=== PATIENT | male | born 2000 | race Caucasian/White ===

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

== ENCOUNTER 2019-01-11 17:30 | Emergency (ER) | payer OTHER ==
[2019-01-11 17:59] VITALS: PULSE 78; RESP 16; TEMP 98.2
--- NOTE | 2019-01-11 19:18 | ED ---
General Adult HPI - General Chief complaint: Headache Stated complaint: vibrations in head Time Seen by Provider: 01/11/19 18:35 Source: patient Mode of arrival: ambulatory Limitations: no limitations - History of Present Illness Initial comments: Patient is a 18-year-old male presenting to the emergency Department with complaints of feeling "vibrations" in the back of his head for the last 2 hours. Patient states he was riding in the back of the car when this feeling started. Patient denies headache, fever, chills, nausea, vomiting, chest pain, shortness of breath, trauma to his head. Patient denies blurry vision, changes in medication. Patient states his head does not hurt to the touch. Patient is denying neck pain. Patient was seen in the ER this month for dizziness and had a head CT that was normal. Patient has no other complaints at this time. Upon arrival to ER, vital signs are stable. - Related Data Home Medications Medication Instructions Recorded Confirmed cloNIDine HCL [Catapres] 0.1 mg PO HS 04/18/18 12/18/18 Allergies Allergy/AdvReac Type Severity Reaction Status Date / Time cat dander Allergy Unknown Verified 01/11/19 17:59 Review of Systems ROS Statement: Those systems with pertinent positive or pertinent negative responses have been documented in the HPI. ROS Other: All systems not noted in ROS Statement are negative. Past Medical History Past Medical History: No Reported History History of Any Multi-Drug Resistant Organisms: None Reported Past Surgical History: No Surgical Hx Reported Additional Past Surgical History / Comment(s): pyloric stenosis Past Psychological History: No Psychological Hx Reported Smoking Status: Former smoker Past Alcohol Use History: None Reported Past Drug Use History: Marijuana General Exam - General Exam Comments Initial Comments: GENERAL: Well-appearing, well-nourished and in no acute distress. HEAD: Atraumatic, normocephalic. No pain to palpation. EYES: Pupils equal round and reactive to light, extraocular movements intact, sclera anicteric, conjunctiva are normal. ENT: TMs normal, nares patent, oropharynx clear without exudates. Moist mucous membranes. NECK: Normal range of motion, supple without lymphadenopathy or JVD. No neck pain. LUNGS: Breath sounds clear to auscultation bilaterally and equal. No wheezes rales or rhonchi. HEART: Regular rate and rhythm without murmurs, rubs or gallops. ABDOMEN: Soft, nontender, normoactive bowel sounds. No guarding, no rebound. No masses appreciated. : Deferred EXTREMITIES: Normal range of motion, no pitting or edema. No clubbing or cyanosis. NEUROLOGICAL: Cranial nerves II through XII grossly intact. Normal speech, normal gait. PSYCH: Normal mood, normal affect. SKIN: Warm, Dry, normal turgor, no rashes or lesions noted. Limitations: no limitations Course Vital Signs 01/11/19 17:54 Temperature 98.2 F Pulse Rate 78 Respiratory 16 Rate Blood Pressure 123/71 O2 Sat by Pulse 98 Oximetry Medical Decision Making - Medical Decision Making Patient is a 18-year-old male presenting with "vibrations" in the back of his head x 2 hours. Patient denies fever, chills, neck pain, headache, dizziness, chest pain, abdominal pain, nausea, vomiting. Patient has no other complaints at this time. There is no trauma to the head. Patient has recently had a CT of the brain which was normal. Patient's vital signs are still stable. Patient's exam is unremarkable today. Discussed with patient is simply could be just a sensation he is feeling of time. Patient is stable for discharge at this time. Patient will follow up with PCP as needed. Patient is agreement with this plan of care. Return parameters were discussed with the patient he verbalizes understanding. Case discussed Dr. Martin. Disposition Clinical Impression: Pulsating sensation in head Disposition: HOME SELF-CARE Condition: Stable Instructions (If sedation given, give patient instructions): Normal Exam (ED) Additional Instructions: Please return to the Emergency Department if symptoms worsen or any other concerns. Follow-up with PCP as discussed. Is patient prescribed a controlled substance at d/c from ED?: No Referrals: Mandeep Chaves MD [Primary Care Provider] - 1-2 days
[2019-01-11 19:49] VITALS: BP 127/67
== END 2019-01-11 19:48 | disposition home or self-care (01) ==
LOC: EC 17:30
DX: R29.818 Other symptoms and signs involving the nervous system (principal); Z79.899 Other long term (current) drug therapy; Z91.048 Other nonmedicinal substance allergy status; Z87.891 Personal history of nicotine dependence
CPT/HCPCS: 99284

== ENCOUNTER → 2019-02-23 | Outpatient (CLI) | payer OTHER ==
[2019-02-23 13:29] LABS: HCT 43.6 % (39.0-53.0); HGB 14.6 gm/dL (13.0-17.5); MCH 29.4 pg (25.0-35.0); MCHC 33.6 g/dL (31.0-37.0); MCV 87.6 fL (80.0-100.0); Mean Platelet Volume 6.3; Platelet Count 278 k/uL (150-450); RBC 4.97 m/uL (4.30-5.90); WBC 6.2 k/uL (4.0-11.0)
[2019-02-23 14:31] LABS: Erythrocyte Sedimentation Rate 2 mm/hr (0-15)
[2019-02-23 19:56] LABS: ALT 13 U/L (10-49); AST 16 U/L (14-35); African American GFR (CKD) 125.9 (60.0-200.0); Albumin/Globulin Ratio 2.45 (1.60-3.17); Alkaline Phosphatase 75 U/L (41-126); C Reactive Protein <0.4 mg/dL (0.0-0.8); Calcium 9.8 mg/dL (8.7-10.3); Carbon Dioxide 28.5 mmol/L (21.6-31.8); Chloride 105 mmol/L (96-109); Glucose 88 mg/dL (70-110); Potassium 4.5 mmol/L (3.5-5.5); Sodium 139 mmol/L (135-145); Total Bilirubin 2.2 mg/dL (0.3-1.2); Total Protein 6.9 g/dL (6.2-8.2)
== END | disposition home or self-care (01) ==
LOC: LABWHC1 11:58
PROVIDERS: ATTEND Physician Assistant
DX: R53.83 Other fatigue (principal)
CPT/HCPCS: 36415; 80053; 84443; 85027; 85652; 86140

== ENCOUNTER → 2019-06-05 | Outpatient (CLI) | payer OTHER ==
--- NOTE | 2019-06-05 07:46 | US ---
EXAMINATION TYPE: US abdomen complete DATE OF EXAM: 06/05/2019 COMPARISON: None CLINICAL HISTORY: 18-year-old male R10.9 Abdominal pain. Hx pyloric stenosis as a child. Patient sta liliana his incision is giving him discomfort. NPO. TECHNIQUE: Multiple sonographic images of the abdomen are obtained. FINDINGS: EXAM MEASUREMENTS: Liver Length: 14.5 cm Gallbladder Wall: 0.2 cm CBD: 0.3 cm Spleen: 10.9 cm Right Kidney: 9.9 x 4.8 x 3.7 cm Left Kidney: 9.4 x 4.4 x 4.2 cm Pancreas: Obscured by bowel gas Liver: wnl Gallbladder: wnl Evidence for sonographic Rojas's sign: neg CBD: wnl Spleen: wnl Kidneys: No hydronephrosis on either side. Upper IVC: wnl Abd Aorta: Aorta normal caliber. IMPRESSION: Suboptimal visualization of the pancreas. Otherwise, unremarkable sonographic examination of the abdo men.
== END | disposition home or self-care (01) ==
LOC: RADUSWWP 07:00
PROVIDERS: ATTEND Family Medicine
DX: R10.9 Unspecified abdominal pain (principal)
CPT/HCPCS: 76700

== ENCOUNTER → 2019-10-17 | Outpatient (CLI) | payer OTHER ==
[2019-10-17 14:13] LABS: Basophils # (A) 0.1 k/uL (0-0.2); Basophils % (A) 1 %; Eosinophils # (A) 0.3 k/uL (0-0.7); Eosinophils % (A) 4 %; HCT 46.9 % (39.0-53.0); HGB 15.3 gm/dL (13.0-17.5); Lymphocytes # (A) 2.6 k/uL (1.0-4.8); Lymphocytes % (A) 34 %; MCH 29.3 pg (25.0-35.0); MCHC 32.6 g/dL (31.0-37.0); MCV 90.1 fL (80.0-100.0); Mean Platelet Volume 6.8; Monocytes # (A) 0.4 k/uL (0-1.0); Monocytes % (A) 6 %; Neutrophils # (A) 4.1 k/uL (1.3-7.7); Neutrophils % (A) 53 %; Platelet Count 281 k/uL (150-450); RBC 5.21 m/uL (4.30-5.90); RDW 12.5 % (11.5-15.5); WBC 7.8 k/uL (4.0-11.0)
[2019-10-17 14:44] LABS: Appearance,Urine Clear (Clear); Bilirubin,Urine Negative (Negative); Blood,Urine Negative (Negative); Color,Urine Colorless; Glucose,Urine (UA) Negative (Negative); Ketones,Urine Negative (Negative); Leukocyte Esterase,Urine Negative (Negative); Nitrite,Urine Negative (Negative); Protein,Urine Negative (Negative); Specific Gravity,Urine 1.003 (1.001-1.035); Urobilinogen,Urine <2.0 mg/dL (<2.0)
[2019-10-17 18:49] LABS: African American GFR (CKD) 112.2 (60.0-200.0); Albumin 4.9 g/dL (3.80-4.90); Albumin/Globulin Ratio 2.13 (1.60-3.17); Anion Gap 2.5 mmol/L (4.00-12.00); BUN/Creat Ratio 10.91 Ratio (12.00-20.00); Calcium 10.1 mg/dL (8.7-10.3); Carbon Dioxide 28.5 mmol/L (21.6-31.8); Globulin 2.3 g/dL (1.6-3.3); Non-African American GFR(CKD) 96.8 (60.0-200.0); Potassium 4.4 mmol/L (3.5-5.5); Total Bilirubin 1.1 mg/dL (0.2-1.2); Total Protein 7.2 g/dL (6.2-8.2)
== END | disposition home or self-care (01) ==
LOC: LABWHC1 12:50
PROVIDERS: ATTEND Nurse Practitioner Family
DX: L30.9 Dermatitis, unspecified (principal)
CPT/HCPCS: 36415; 80053; 81003; 85025

== ENCOUNTER 2020-01-03 20:37 | Emergency (ER) | payer OTHER ==
[2020-01-03] MEDS ORDERED: guaiFENesin-DM 600/30MG 1 EACH TAB.ER.12H PO STA (21:08)
[2020-01-03] MEDS ORDERED: ACETAMINOPHEN TAB 325 MG TAB PO STA (21:08)
[2020-01-03] MEDS ORDERED: IBUPROFEN 600 MG TAB PO STA (21:08)
--- NOTE | 2020-01-03 21:11 | ED ---
URI HPI - General Chief Complaint: Upper Respiratory Infection Stated Complaint: Wants COVID test Time Seen by Provider: 01/03/20 20:53 Source: patient Mode of arrival: ambulatory Limitations: no limitations - History of Present Illness Initial Comments: 19-year-old male patient presents to the emergency department today for evaluation of nasal congestion, sore throat, fever. Patient states symptoms started last evening. States his temperature has been around 100F. He denies any cough, chest congestion, shortness of breath. He denies taking any medication for his symptoms. Denies any sick contacts or recent travel. Patient is concerned due to the current coronavirus pandemic. Patient states he is otherwise healthy. He does take a daily Zyrtec and clonidine for sleeping. Denies history of smoking. Denies drug use. Patient denies any recent rash, chest pain, abdominal pain, nausea, vomiting, diarrhea, constipation, back pain, numbness, tingling, dizziness, weakness, hematuria, dysuria, urinary urgency, urinary frequency, headache, visual changes, or any other complaints. - Related Data Home Medications Medication Instructions Recorded Confirmed cloNIDine HCL [Catapres] 0.1 mg PO HS 04/18/18 12/18/18 Previous Rx's Medication Instructions Recorded guaiFENesin-DM 600/30MG [Mucinex 1 each PO Q12HR #10 tab.er.12h 01/03/20 Dm] Allergies Allergy/AdvReac Type Severity Reaction Status Date / Time cat dander Allergy Unknown Verified 01/03/20 20:41 Review of Systems ROS Statement: Those systems with pertinent positive or pertinent negative responses have been documented in the HPI. ROS Other: All systems not noted in ROS Statement are negative. Past Medical History Past Medical History: No Reported History History of Any Multi-Drug Resistant Organisms: None Reported Past Surgical History: No Surgical Hx Reported Additional Past Surgical History / Comment(s): pyloric stenosis Past Psychological History: No Psychological Hx Reported Smoking Status: Never smoker Past Alcohol Use History: None Reported Past Drug Use History: Marijuana General Exam Limitations: no limitations General appearance: alert, in no apparent distress, other (This is a well- developed, well-nourished adult male patient in no acute distress. Vital signs upon presentation are temperature 99.8F, pulse 123, respirations 20, blood pressure 144/88, pulse ox 98% on room air.) Eye exam: Present: normal appearance, PERRL, EOMI. Absent: scleral icterus, conjunctival injection, periorbital swelling ENT exam: Present: mucous membranes moist, TM's normal bilaterally (Pearly with no effusion). Absent: normal oropharynx (Pharyngeal erythema, no tonsillar hypertrophy, no exudate. Uvula is midline, tonsils are symmetric.) Neck exam: Present: normal inspection. Absent: tenderness, meningismus, lymphadenopathy Respiratory exam: Present: normal lung sounds bilaterally. Absent: respiratory distress, wheezes, rales, rhonchi, stridor Cardiovascular Exam: Present: regular rate, normal rhythm, normal heart sounds. Absent: systolic murmur, diastolic murmur, rubs, gallop, clicks GI/Abdominal exam: Present: soft, normal bowel sounds. Absent: distended, tenderness, guarding, rebound, rigid Neurological exam: Present: alert, oriented X3, CN II-XII intact Psychiatric exam: Present: normal affect, normal mood Skin exam: Present: warm, dry, intact, normal color. Absent: rash Course Vital Signs 01/03/20 01/03/20 01/03/20 20:38 22:00 22:02 Temperature 99.8 F H 99.5 F Pulse Rate 123 H 118 H Respiratory 20 19 Rate Blood Pressure 144/88 129/81 O2 Sat by Pulse 98 98 Oximetry Medical Decision Making - Medical Decision Making 19-year-old male patient presented to the emergency department today for evaluation of sore throat, nasal congestion, and elevated temperature. Patient's temperature is 99.9F in the department. Throat did reveal some pharyngeal erythema with no exudate, no swelling, tonsils are symmetric and uvula was midline. Lungs are clear to auscultation. He is not coughing. Influenza testing was negative. We also did send a COVID-19 swab. We did discuss her results of influenza testing. He is diagnosed with a viral upper respiratory infection. We did discuss increasing fluids, pain management with [id number] medication and prescription Mucinex DM. Be discharged to follow-up with his primary care physician for recheck in 1-2 days. He is instructed to quarantine until he received results of his COVID-19 testing. Return parameters were discussed in detail. He verbalizes understanding and agrees with this plan. - Lab Data Lab Results 01/03/20 Range/Units 21:31 Influenza Type A RNA Not Detected (Not Detectd) Influenza Type B (PCR) Not Detected (Not Detectd) Disposition Clinical Impression: Viral upper respiratory infection Disposition: HOME SELF-CARE Condition: Good Instructions (If sedation given, give patient instructions): Upper Respiratory Infection (ED) Additional Instructions: Take medications as directed. Take Tylenol and Motrin for fever control. Await your COVID-19 results. Follow-up through primary care physician for recheck in 1-2 days. Return to the emergency department immediately for any new, worsening, or concerning symptoms. Prescriptions: guaiFENesin-DM 600/30MG [Mucinex Dm] 1 each PO Q12HR #10 tab.er.12h Is patient prescribed a controlled substance at d/c from ED?: No Referrals: Mandeep Chaves MD [Primary Care Provider] - 1-2 days Time of Disposition: 22:57
[2020-01-03 22:02] VITALS: BP 129/81; PULSE 118; RESP 19
[2020-01-03 22:03] VITALS: TEMP 99.5
== END 2020-01-03 23:07 | disposition home or self-care (01) ==
LOC: EC 20:37
DX: J02.9 Acute pharyngitis, unspecified (principal); Z20.828 Contact with and (suspected) exposure to other viral communicable diseases; Z91.048 Other nonmedicinal substance allergy status
CPT/HCPCS: 87502; 99283; U0003

== ENCOUNTER → 2020-02-14 | Outpatient (CLI) | payer OTHER ==
[2020-02-14 12:49] LABS: Basophils # (A) 0.1 k/uL (0-0.2); Basophils % (A) 1 %; Eosinophils # (A) 0.3 k/uL (0-0.7); Eosinophils % (A) 4 %; HCT 46.1 % (39.0-53.0); HGB 14.9 gm/dL (13.0-17.5); Lymphocytes # (A) 2.7 k/uL (1.0-4.8); Lymphocytes % (A) 36 %; MCH 29.1 pg (25.0-35.0); MCHC 32.3 g/dL (31.0-37.0); Mean Platelet Volume 6.9; Monocytes # (A) 0.5 k/uL (0-1.0); Monocytes % (A) 7 %; Neutrophils # (A) 3.6 k/uL (1.3-7.7); Neutrophils % (A) 48 %; Platelet Count 276 k/uL (150-450); RBC 5.12 m/uL (4.30-5.90); RDW 13.1 % (11.5-15.5); WBC 7.5 k/uL (4.0-11.0)
[2020-02-14 20:29] LABS: African American GFR (CKD) 111.4 (60.0-200.0); Albumin 4.6 g/dL (3.80-4.90); Albumin/Globulin Ratio 1.84 (1.60-3.17); Anion Gap 9.1 mmol/L (4.00-12.00); BUN/Creat Ratio 12.73 Ratio (12.00-20.00); Calcium 9.8 mg/dL (8.7-10.3); Carbon Dioxide 24.9 mmol/L (21.6-31.8); Chol/HDL Ratio 3.51; Globulin 2.5 g/dL (1.6-3.3); LDL Cholesterol,Calculated 78.8 mg/dL (0.0-131.0); Non-African American GFR(CKD) 96.1 (60.0-200.0); Potassium 4.4 mmol/L (3.5-5.5); Total Bilirubin 1.3 mg/dL (0.2-1.2); Total Protein 7.1 g/dL (6.2-8.2); VLDL Calculation 14.2 mg/dL (5.00-40.00)
[2020-02-14 20:38] LABS: T4, Free (Free Thyroxine) 1.1 ng/dL (0.83-1.43)
== END | disposition home or self-care (01) ==
LOC: LABWHC1 02-13 14:12
PROVIDERS: ATTEND Nurse Practitioner Family
DX: Z00.00 Encounter for general adult medical examination without abnormal findings (principal); L08.9 Local infection of the skin and subcutaneous tissue, unspecified
CPT/HCPCS: 36415; 80053; 80061; 84439; 84443; 85025; 86060

== ENCOUNTER 2020-05-24 22:57 | Emergency (ER) | payer OTHER ==
[2020-05-24] MEDS ORDERED: METOCLOPRAMIDE 5 MG/ML 2 ML VIAL IVP STA (23:44)
[2020-05-24] MEDS ORDERED: SODIUM CHLORIDE 0.9% 500 ML 500 ML IV ONE (23:44)
[2020-05-24] MEDS ORDERED: diphenhydrAMINE 50 MG/ML 1 ML VIAL IVP STA (23:44)
[2020-05-24] MEDS ORDERED: KETOROLAC 15 MG/ML 1 ML VIAL IVP STA (23:44)
--- NOTE | 2020-05-25 00:08 | ED ---
Headache HPI - General Chief Complaint: Headache Stated Complaint: Headache Time Seen by Provider: 05/24/20 23:16 Mode of arrival: ambulatory Limitations: no limitations - History of Present Illness Initial Comments: 19 year-old male patient presents to the emergency department for evaluation of headache. States that he has had similar headaches for the last year and a half. He was hoping to get a neurology referral. Patient reports a throbbing/pressure sensation to the frontal region. States that he has dizziness and nausea with this. States the headaches generally occur twice weekly. He denies any blurred or double vision. Denies any fever or chills. Denies congestion, cough, or sore throat. Denies any recent head injury. Denies numbness, tingling, or weakness to his extremities. Patient denies any recent rash, cough, shortness of breath, chest pain, abdominal pain, diarrhea, constipation, back pain, hematuria, dysuria, urinary urgency, urinary frequency, or any other complaints. - Related Data Home Medications Medication Instructions Recorded Confirmed cloNIDine HCL [Catapres] 0.1 mg PO HS 04/18/18 12/18/18 Previous Rx's Medication Instructions Recorded guaiFENesin-DM 600/30MG [Mucinex 1 each PO Q12HR #10 tab.er.12h 01/03/20 Dm] Allergies Allergy/AdvReac Type Severity Reaction Status Date / Time cat dander Allergy Unknown Verified 05/24/20 23:07 Review of Systems ROS Statement: Those systems with pertinent positive or pertinent negative responses have been documented in the HPI. ROS Other: All systems not noted in ROS Statement are negative. Past Medical History Past Medical History: No Reported History History of Any Multi-Drug Resistant Organisms: None Reported Past Surgical History: No Surgical Hx Reported Additional Past Surgical History / Comment(s): pyloric stenosis Past Psychological History: No Psychological Hx Reported Smoking Status: Never smoker Past Alcohol Use History: None Reported Past Drug Use History: Marijuana General Exam Limitations: no limitations General appearance: alert, in no apparent distress, other (This is a well- developed, well-nourished adult male patient in no acute distress.) Eye exam: Present: normal appearance, PERRL, EOMI. Absent: scleral icterus, conjunctival injection, periorbital swelling ENT exam: Present: normal exam, normal oropharynx, mucous membranes moist Respiratory exam: Present: normal lung sounds bilaterally. Absent: respiratory distress, wheezes, rales, rhonchi, stridor Cardiovascular Exam: Present: regular rate, normal rhythm, normal heart sounds. Absent: systolic murmur, diastolic murmur, rubs, gallop, clicks GI/Abdominal exam: Present: soft, normal bowel sounds. Absent: distended, tenderness, guarding, rebound, rigid Neurological exam: Present: alert, oriented X3, CN II-XII intact Expanded Speech: Present: fluid speech Cranial nerves: EOM's Intact: Normal Cerebellar function: Finger to Nose: Normal Motor strength exam: RUE: 5, LUE: 5, RLE: 5, LLE: 5 Eye Response: (4) open spontaneously Motor Response: (6) obeys commands Verbal Response: (5) oriented Igor Total: 15 Psychiatric exam: Present: normal affect, normal mood Skin exam: Present: warm, dry, intact, normal color. Absent: rash Course Vital Signs 05/24/20 05/25/20 23:04 01:18 Temperature 98.4 F 98.1 F Pulse Rate 88 71 Respiratory 18 16 Rate Blood Pressure 131/74 121/67 O2 Sat by Pulse 98 97 Oximetry Medical Decision Making - Medical Decision Making 19-year-old male patient presents to the emergency department today for evaluation of headache. Reports a frontal throbbing and pressure. States having headaches 2 times per week for the last year and a half. Physical examination is unremarkable. He is neurologically intact with no focal deficits. He is given Toradol, Reglan, Benadryl. Upon reevaluation states his symptoms are completely resolved. To be discharged to follow-up with his primary care physician for recheck in 1-2 days. He requests urology referral, he is given phone numbers. Return parameters discussed in detail. He verbalizes understanding and agrees with this plan. My attending is Dr. Welch. Disposition Clinical Impression: Headache Disposition: HOME SELF-CARE Condition: Good Instructions (If sedation given, give patient instructions): Acute Headache (ED) Additional Instructions: Follow-up with the neurologist soon as possible. Optic primary care physician for recheck in 1-2 days. Return to the emergency department for any new, worsening, or concerning symptoms. Is patient prescribed a controlled substance at d/c from ED?: No Referrals: Mandeep Chaves MD [Primary Care Provider] - 1-2 days Abram Brown MD [Medical Doctor] - 1-2 days Kvng Adams MD [REFERRING] - 1-2 days Mica Adams MD [REFERRING] - 1-2 days Misbah Angel MD [STAFF PHYSICIAN] - 1-2 days Time of Disposition: 01:07
[2020-05-25 01:26] VITALS: BP 121/67; PULSE 71; RESP 16; TEMP 98.1
== END 2020-05-25 01:18 | disposition home or self-care (01) ==
LOC: EC 22:57
DX: R51.9 Headache, unspecified (principal); Z79.899 Other long term (current) drug therapy; Z91.048 Other nonmedicinal substance allergy status
CPT/HCPCS: 99283; 96374; 96375 ×2; J1200; J2765; J1885

== ENCOUNTER → 2020-07-29 | Outpatient (CLI) | payer OTHER ==
--- NOTE | 2020-07-29 14:13 | XR ---
EXAMINATION TYPE: XR chest 2V DATE OF EXAM: 07/29/2020 COMPARISON: NONE TECHNIQUE: PA and lateral views submitted. HISTORY: Cough FINDINGS: The lungs are clear and there is no pneumothorax, pleural effusion, or focal pneumonia. Heart size normal. No overt failure. IMPRESSION: 1. No acute process.
== END | disposition home or self-care (01) ==
LOC: RADXRMAIN 13:42
PROVIDERS: ATTEND Nurse Practitioner Family
DX: R05 Cough (principal)
CPT/HCPCS: 71046

== ENCOUNTER 2020-08-08 22:14 | Emergency (ER) | payer OTHER ==
[2020-08-08 22:19] VITALS: BP 121/69; PULSE 96; TEMP 99.3
--- NOTE | 2020-08-08 23:03 | ED ---
Recheck HPI - General Chief Complaint: Upper Respiratory Infection Stated Complaint: Fever,Cough Time Seen by Provider: 08/08/20 23:02 Source: patient, RN notes reviewed, old records reviewed Mode of arrival: ambulatory Limitations: no limitations - History of Present Illness Initial Comments: This is a 19-year-old male DF for evaluation. Patient states he's had symptoms of coronavirus. There is no medical history takes no medication but has recently increased cough congestion a bleeding she's been fibro-but no documented fever. No known significant sick contacts travel history other complaints. MD Complaint: abnormal lab, other (fever chest pain and congestion) -: days(s) Returns Today for: persistent/worsening pain related to initial visit Symptoms Since Prior Visit: worsening pain Associated Symptoms: none Treatments Prior to Arrival: other (none) - Related Data Home Medications Medication Instructions Recorded Confirmed cloNIDine HCL [Catapres] 0.1 mg PO HS 04/18/18 12/18/18 Previous Rx's Medication Instructions Recorded guaiFENesin-DM 600/30MG [Mucinex 1 each PO Q12HR #10 tab.er.12h 01/03/20 Dm] Allergies Allergy/AdvReac Type Severity Reaction Status Date / Time cat dander Allergy Unknown Verified 08/08/20 22:19 Review of Systems ROS Statement: Those systems with pertinent positive or pertinent negative responses have been documented in the HPI. ROS Other: All systems not noted in ROS Statement are negative. Past Medical History Past Medical History: No Reported History History of Any Multi-Drug Resistant Organisms: None Reported Past Surgical History: No Surgical Hx Reported Additional Past Surgical History / Comment(s): pyloric stenosis Past Psychological History: No Psychological Hx Reported Smoking Status: Never smoker Past Alcohol Use History: None Reported Past Drug Use History: Marijuana General Exam Limitations: no limitations General appearance: alert, in no apparent distress Head exam: Present: atraumatic, normocephalic, normal inspection Eye exam: Present: normal appearance, PERRL, EOMI. Absent: scleral icterus, conjunctival injection, periorbital swelling ENT exam: Present: normal exam, mucous membranes moist Neck exam: Present: normal inspection. Absent: tenderness, meningismus, lymp hadenopathy Respiratory exam: Present: normal lung sounds bilaterally. Absent: respiratory distress, wheezes, rales, rhonchi, stridor Cardiovascular Exam: Present: regular rate, normal rhythm, normal heart sounds. Absent: systolic murmur, diastolic murmur, rubs, gallop, clicks GI/Abdominal exam: Present: soft, normal bowel sounds. Absent: distended, tenderness, guarding, rebound, rigid Extremities exam: Present: normal inspection, full ROM, normal capillary refill. Absent: tenderness, pedal edema, joint swelling, calf tenderness Back exam: Present: normal inspection Neurological exam: Present: alert, oriented X3, CN II-XII intact Psychiatric exam: Present: normal affect, normal mood Skin exam: Present: warm, dry, intact, normal color. Absent: rash Course Vital Signs 08/08/20 08/08/20 22:15 23:18 Temperature 99.3 F Pulse Rate 96 Respiratory 18 16 Rate Blood Pressure 121/69 O2 Sat by Pulse 95 Oximetry - Reevaluation(s) Reevaluation #1: Medical record is reviewed Patient symptoms are significantly improved here in the emergency department Patient family informed of results, questions answered Medical Decision Making - Medical Decision Making 19 male for possible coronavirus. Patient is negative for coronavirus here in the ER. Patient otherwise is in no distress and can be discharged home - Lab Data Lab Results 08/08/20 Range/Units 22:43 Coronavirus (PCR) Not Detected (Not Detectd) - Radiology Data Radiology results: report reviewed (Chest x-rays negative for acute disease), image reviewed Disposition Clinical Impression: Acute upper respiratory infection, Upper respiratory tract infection Disposition: HOME SELF-CARE Instructions (If sedation given, give patient instructions): Upper Respiratory Infection (ED) Is patient prescribed a controlled substance at d/c from ED?: No Referrals: Mandeep Chaves MD [Primary Care Provider] - 1-2 days
[2020-08-08 23:23] VITALS: RESP 16
--- NOTE | 2020-08-08 23:38 | XR ---
EXAMINATION TYPE: XR chest 1V portable DATE OF EXAM: 08/08/2020 COMPARISON: 07/29/2020 HISTORY: Cough TECHNIQUE: Single view FINDINGS: Heart and mediastinum are normal. Lungs are clear. Diaphragm is normal. Bony thorax appears normal. IMPRESSION: Normal chest. No change.
== END 2020-08-08 23:52 | disposition home or self-care (01) ==
LOC: EC 22:14
DX: J06.9 Acute upper respiratory infection, unspecified (principal); F12.90 Cannabis use, unspecified, uncomplicated; Z20.822 Contact with and (suspected) exposure to COVID-19
CPT/HCPCS: 71045; 87635; 99283

== ENCOUNTER 2022-05-01 19:43 | Emergency (ER) | payer OTHER ==
[2022-05-01 19:50] VITALS: BP 128/84; PULSE 87; RESP 16; TEMP 97.8
--- NOTE | 2022-05-01 20:23 | XR ---
EXAMINATION TYPE: XR ankle complete RT DATE OF EXAM: 05/01/2022 COMPARISON: NONE HISTORY: Pain TECHNIQUE: 3 views FINDINGS: There is soft tissue swelling over the lateral malleolus. Ankle mortise is anatomic spaces are normal. IMPRESSION: Mild lateral soft tissue swelling. No fracture seen.
--- NOTE | 2022-05-01 20:24 | XR ---
EXAMINATION TYPE: XR foot complete RT DATE OF EXAM: 05/01/2022 COMPARISON: NONE HISTORY: Ankle pain TECHNIQUE: 3 views FINDINGS: The metatarsals are intact. I see no fracture nor dislocation. The toes are intact. Joint s paces are normal. IMPRESSION: Negative right foot exam.
--- NOTE | 2022-05-01 20:48 | ED ---
General Adult HPI - General Chief complaint: Recheck/Abnormal Lab/Rx Stated complaint: Ankle Injury Time Seen by Provider: 05/01/22 20:40 Source: patient Mode of arrival: ambulatory Limitations: no limitations - History of Present Illness Initial comments: Dictation was produced using [employer] dictation software. please excuse any grammatical, word or spelling errors. Chief Complaint: 21-year-old male who sprained his ankle 2 days ago presents to the ER for bruising around his foot History of Present Illness: 21-year-old [id number] his ankle 2 or 3 days ago while running. Patient states that his ankle hurt initially however it's been improving. Today he woke up and noticed some bruising on his leg. Overall he feels a little better able to bear weight. Denies any midfoot pain no pain over the lateral foot. No knee pain. The ROS documented in this emergency department record has been reviewed and confirmed by me. Those systems with pertinent positive or negative responses have been documented in the HPI. All other systems are other negative and/or noncontributory. PHYSICAL EXAM: General Impression: Alert and oriented x3, not in acute distress HEENT: Normocephalic atraumatic, extra-ocular movements intact, pupils equal and reactive to light bilaterally, mucous membranes moist. Cardiovascular: Heart regular rate and rhythm Chest: Able to complete full sentences, no retractions, no tachypnea Musculoskeletal: Pulses present and equal in all extremities, no peripheral edema Motor: no focal deficits noted Neurological: CN II-XII grossly intact, no focal motor or sensory deficits noted Skin: Intact with no visualized rashes Psych: Normal affect and mood Right ankle: Ecchymoses around the ankle and lower foot, no midfoot tenderness. No palpatory tenderness to the proximal fifth metatarsal ED course: 21-year-old male presents emergency department for clinical presentation consistent with bruising status post ankle sprain. X-rays unremarkable. Vital signs stable. Physical exam is benign. Patient discharged. No concerns for Lisfranc sprain or Marques fracture Nursing notes and chart review was performed - Related Data Home Medications Medication Instructions Recorded Confirmed cloNIDine HCL [Catapres] 0.1 mg PO HS 04/18/18 12/18/18 Previous Rx's Medication Instructions Recorded guaiFENesin-DM 600/30MG [Mucinex 1 each PO Q12HR #10 tab.er.12h 01/03/20 Dm] Allergies Allergy/AdvReac Type Severity Reaction Status Date / Time cat dander Allergy Unknown Verified 05/01/22 19:50 Review of Systems ROS Statement: Those systems with pertinent positive or pertinent negative responses have been documented in the HPI. ROS Other: All systems not noted in ROS Statement are negative. Past Medical History Past Medical History: No Reported History History of Any Multi-Drug Resistant Organisms: None Reported Past Surgical History: No Surgical Hx Reported Additional Past Surgical History / Comment(s): pyloric stenosis Past Psychological History: No Psychological Hx Reported Smoking Status: Never smoker Past Alcohol Use History: None Reported Past Drug Use History: Marijuana General Exam Limitations: no limitations Course Vital Signs 05/01/22 19:48 Temperature 97.8 F Pulse Rate 87 Respiratory 16 Rate Blood Pressure 128/84 O2 Sat by Pulse 96 Oximetry Disposition Clinical Impression: Ankle sprain Disposition: HOME SELF-CARE Condition: Good Instructions (If sedation given, give patient instructions): Ankle Sprain (DC) Is patient prescribed a controlled substance at d/c from ED?: No Referrals: Mandeep Chaves MD [Primary Care Provider] - 1-2 days Time of Disposition: 20:47
== END 2022-05-01 21:02 | disposition home or self-care (01) ==
LOC: EC 19:43
DX: S93.401A Sprain of unspecified ligament of right ankle, initial encounter (principal); F12.90 Cannabis use, unspecified, uncomplicated; X58.XXXA Exposure to other specified factors, initial encounter
CPT/HCPCS: 99283

== ENCOUNTER → 2022-05-22 | Outpatient (CLI) | payer OTHER ==
[2022-05-22 18:33] LABS: Basophils # (A) 0.09 X 10*3/uL (0.00-0.10); Basophils % (A) 1.1 %; Eosinophils % (A) 3.6 %; HCT 44.3 % (39.6-50.0); HGB 14.6 g/dL (13.0-17.0); Immature Grans, Automated 0.4 %; Lymphocytes # (A) 3.17 X 10*3/uL (0.90-5.00); Lymphocytes % (A) 38.5 %; MCH 28.8 pg (27.0-32.0); MCV 87.4 fL (80.0-97.0); Mean Platelet Volume 9.8 fL (9.5-12.2); Monocytes # (A) 0.64 X 10*3/uL (0.20-1.00); Monocytes % (A) 7.8 %; NRBC Per 100 WBC 0 /100 WBCS (0.0-0.0); Neutrophils % (A) 48.6 %; Platelet Count 318 X 10*3/uL (140-440); RBC 5.07 X 10*6/uL (4.40-5.60); WBC 8.23 X 10*3/uL (4.50-10.00)
[2022-05-22 18:53] LABS: ALT 36 U/L (10-49); AST 24 U/L (14-35); African American GFR (CKD) 108.7 (60.0-200.0); Albumin 4.7 g/dL (3.8-4.9); Albumin/Globulin Ratio 1.71 (1.60-3.17); Alkaline Phosphatase 93 U/L (41-126); BUN/Creat Ratio 9.55 Ratio (12.00-20.00); Blood Urea Nitrogen 10.6 mg/dL (9.0-27.0); Calcium 9.7 mg/dL (8.7-10.3); Carbon Dioxide 26.7 mmol/L (20.0-27.5); Chloride 103 mmol/L (96-109); Chol/HDL Ratio 3.03 Ratio; Globulin 2.7 g/dL (1.6-3.3); Glucose 87 mg/dL (70-110); Non-African American GFR(CKD) 93.8 (60.0-200.0); Potassium 4.4 mmol/L (3.5-5.5); Sodium 142 mmol/L (135-145); Total Protein 7.4 g/dL (6.2-8.2)
== END | disposition home or self-care (01) ==
LOC: LABWHC1 11:41
PROVIDERS: ATTEND Family Medicine
DX: Z00.00 Encounter for general adult medical examination without abnormal findings (principal); Z11.4 Encounter for screening for human immunodeficiency virus [HIV]
CPT/HCPCS: 36415; 80053; 80061; 84443; 85025; 87390

== ENCOUNTER 2022-11-22 01:39 | Emergency (ER) | payer OTHER ==
[2022-11-22 01:48] VITALS: BP 116/74; PULSE 89; RESP 18; TEMP 98.9
[2022-11-22] MEDS ORDERED: ONDANSETRON ODT 4 MG TAB PO STA (02:23)
--- NOTE | 2022-11-22 02:56 | ED ---
General Adult HPI - General Chief complaint: Nausea/Vomiting/Diarrhea Stated complaint: Food poising, high BP and heart rate Time Seen by Provider: 11/22/22 02:23 Source: patient, RN notes reviewed, old records reviewed Mode of arrival: ambulatory Limitations: no limitations - History of Present Illness Initial comments: Patient is a 22-year-old male who presents emergency Department complaining of nausea, vomiting, diarrhea for the last 1-2 days. Patient was seen by [facility] yesterday and diagnosed with food poisoning. He brings his labs with him. Was given fluids as well as prescription for Zofran. Went home, was concerned that he may have a viral syndrome as he had additional episodes of emesis was nonbilious nonbloody emesis as well as diarrhea that is nonbloody. He has not yet filled his prescription for Zofran. Presents for further evaluation at this time. This concerned he may have a virus. Is also concern regarding his heart rate. No other acute complaints at this time. Denies abdominal pain, chest pain, shortness breath. Patient states he did fever on his forehead that was elevated at home but he did not take a oral temp. Currently is afebrile. Did not take any meds at home. Presents for further evaluation at this time. - Related Data Home Medications Medication Instructions Recorded Confirmed Omeprazole 20 mg PO BID 08/04/22 08/17/22 Previous Rx's Medication Instructions Recorded predniSONE [Deltasone] 20 mg PO BID 3 Days #6 tab 08/21/22 Allergies Allergy/AdvReac Type Severity Reaction Status Date / Time cat dander Allergy Unknown Verified 08/17/22 08:29 Review of Systems ROS Statement: Those systems with pertinent positive or pertinent negative responses have been documented in the HPI. Review of Systems: CONST: Denies fever EYES: Denies blurry vision ENT: Denies nasal congestion C/V: Denies Chest pain RESP: Denies shortness of breath GI: Denies abdominal pain : Denies dysuria SKIN: Denies rash. MSK: Denies joint pain. NEURO: Denies headache ROS Other: All systems not noted in ROS Statement are negative. Past Medical History Past Medical History: GERD/Reflux History of Any Multi-Drug Resistant Organisms: None Reported Past Surgical History: No Surgical Hx Reported Additional Past Surgical History / Comment(s): Pyloric stenosis surgically repaired. Past Psychological History: Anxiety, Depression Smoking Status: Never smoker Past Alcohol Use History: None Reported Past Drug Use History: None Reported General Exam - General Exam Comments Initial Comments: General: Appears in no acute distress. HEAD: Normal with no signs of head trauma. EYES: PERRLA, EOMI, conjunctiva normal, no discharge. ENT: Hearing grossly intact, normal oropharynx. RESPIRATORY: Clear breath sounds bilaterally. No wheezes, rales, or rhonchi. C/V: Regular rate and rhythm. S1 and S2 auscultated, no edema, peripheral pulses 2+ and intact throughout ABD: Abd is soft, nontender, nondistended EXT: Normal range of motion, no obvious deformity SKIN: No rashes or lesions observed on exposed skin. NEURO: Alert and oriented 4. Limitations: no limitations Course Vital Signs 11/22/22 01:45 Temperature 98.9 F Pulse Rate 89 Respiratory 18 Rate Blood Pressure 116/74 O2 Sat by Pulse 98 Oximetry Medical Decision Making - Medical Decision Making Was pt. sent in by a medical professional or institution (, PA, RN CIRCULATING, urgent care, hospital, or mcc...) When possible be specific @ -No Did you speak to anyone other than the patient for history (EMS, parent, family, police, friend...)? What history was obtained from this source @ -No Did you review nursing and triage notes (agree or disagree)? Why? @ -I reviewed and agree with nursing and triage notes Were old charts reviewed (outside hosp., previous admission, EMS record, old EKG, old radiological studies, urgent care reports/EKG's, mcc records)? Report findings @ -Reviewed charts of the patient brings with him from outside facility with laboratory results which were unremarkable. Differential Diagnosis (chest pain, altered mental status, abdominal pain women, abdominal pain men, vaginal bleeding, weakness, fever, dyspnea, syncope, headache, dizziness, GI bleed, back pain, seizure, CVA, palpatations, mental health, musculoskeletal)? @ -Dehydration, viral syndrome, COVID-19 infection, nausea, vomiting. This list is not all-inclusive. EKG interpreted by me (3pts min.). @ -As above X-rays interpreted by me (1pt min.). @ -None done CT interpreted by me (1pt min.). @ -None done U/S interpreted by me (1pt. min.). @ -None done What testing was considered but not performed or refused? (CT, X-rays, U/S, labs)? Why? @ -None What meds were considered but not given or refused? Why? @ -None Did you discuss the management of the patient with other professionals (professionals i.e. , PA, RN CIRCULATING, lab, RT, psych nurse, social media project manager, raw stock machine feeder, teacher, loan service officer, case technician)? Give summary @ -No Was smoking cessation discussed for >3mins.? @ -No Was critical care preformed (if so, how long)? @ -No Were there social determinants of health that impacted care today? How? (Homelessness, low income, unemployed, alcoholism, drug addiction, transportation, low edu. Level, literacy, decrease access to med. care, mcc, rehab)? @ -No Was there de-escalation of care discussed even if they declined (Discuss DNR or withdrawal of care, Hospice)? DNR status @ -No What co-morbidities impacted this encounter? (DM, HTN, Smoking, COPD, CAD, Cancer, CVA, ARF, Chemo, Hep., AIDS, mental health diagnosis, sleep apnea, morbid obesity)? @ -None Was patient admitted / discharged? Hospital course, mention meds given and route, prescriptions, significant lab abnormalities, going to OR and other pertinent info. @ -Based on the patient's presentation and physical exam, he presents for reevaluation. Specifically concerned for possible viral syndrome, possible fever, possible dehydration. We discussed obtain labs but I believe it is unnecessary as his labs earlier. Within normal limits and not much is change. He was in agreement this plan. We will obtain viral swabs, screening EKG. Please symptomatically treated with a Zofran ODT tablet and orally challenged. Patient was in agreement this plan. Vital signs within acceptable limits. EKG showed no signs of acute ischemia.Viral swabs and strep throat swab negative. I reevaluated the patient. We discussed his workup. He may have a form of gastroenteritis as he did eat [employer] that no one else ate at home that was old. We discussed that should pass in a few days. Discussed proper hydration. He will be given a starter pack with Zofran. He'll be discharged home at this time. I instructed the patient to follow up with their PCP in the next 1-3 days. I explained that the patient should return to the emergency department if they experience any worsening symptoms. Strict return precautions were discussed with the patient. The patient expressed understanding of these instructions. I answered all questions that the patient had. The patient was discharged home in good condition with their prescriptions and follow up information. Undiagnosed new problem with uncertain prognosis? @ -No Drug Therapy requiring intensive monitoring for toxicity (Heparin, Nitro, Insulin, Cardizem)? @ -No Were any procedures done? @ -No Diagnosis/symptom? @ -Nausea, vomiting, diarrhea, suspect gastroenteritis Acute, or Chronic, or Acute on Chronic? @ -Acute Uncomplicated (without systemic symptoms) or Complicated (systemic symptoms)? @ -Uncomplicated Side effects of treatment? @ -none Exacerbation, Progression, or Severe Exacerbation] @ -no Poses a threat to life or bodily function? @ -no - Lab Data Lab Results 11/22/22 11/22/22 Range/Units 02:35 02:35 Influenza Type A (PCR) Not Detected (Not Detectd) Influenza Type B (PCR) Not Detected (Not Detectd) RSV (PCR) Not Detected (Not Detectd) SARS-CoV-2 (PCR) Not Detected (Not Detectd) Group A Strep (PCR) NOT DETECTED (Not Detectd) - EKG Data -: EKG Interpreted by Me EKG Comments: 12-lead Electrocardiogram Interpretation Note EKG was reviewed and interpreted by myself. 12-lead ECG performed at 0235 is interpreted by me as revealing sinus tachycardia at a rate of 102 beats per minute. Custar is normal. IN interval is 149 ms, QRS duration is 95 ms, QTc is 369 milliseconds.. There were no ST or T wave abnormalities to suggest myocardial ischemia or injury. R wave progression across the precordium was satisfactory. By my interpretation this EKG is non-diagnostic for acute ischemia. Disposition Clinical Impression: Nausea vomiting and diarrhea Disposition: HOME SELF-CARE Condition: Good Instructions (If sedation given, give patient instructions): Acute Nausea and Vomiting (ED), Acute Diarrhea (ED) Is patient prescribed a controlled substance at d/c from ED?: No Referrals: Mandeep Chaves MD [Primary Care Provider] - 1-2 days Time of Disposition: 03:38
[2022-11-22] MEDS ORDERED: ONDANSETRON 4 MG ODT STARTER PACK 2 TAB BTL PO STA (03:40)
== END 2022-11-22 03:50 | disposition home or self-care (01) ==
LOC: EC 01:39
DX: R11.2 Nausea with vomiting, unspecified (principal); R19.7 Diarrhea, unspecified; K21.9 Gastro-esophageal reflux disease without esophagitis; Z20.822 Contact with and (suspected) exposure to COVID-19; Z79.899 Other long term (current) drug therapy; Z91.09 Other allergy status, other than to drugs and biological substances
CPT/HCPCS: 93005; 87651; 87636; 99284; S0119

== ENCOUNTER 2022-12-12 20:44 | Emergency (ER) | payer OTHER ==
[2022-12-12 20:48] VITALS: RESP 18
[2022-12-12 20:59] LABS: Glucose,Whole Blood 125 mg/dL (70-110)
--- NOTE | 2022-12-12 22:11 | ED ---
Recheck HPI - General Chief Complaint: Recheck/Abnormal Lab/Rx Stated Complaint: High BP Time Seen by Provider: 12/12/22 21:12 Source: patient, RN notes reviewed, old records reviewed Mode of arrival: ambulatory Limitations: no limitations - History of Present Illness Initial Comments: This is a 19-year-old male to the emergency department today. Patient presents today for evaluation regards to blood pressure. Patient has elevated blood pressure here in the emergency room. Patient has no other complaints no chest pain shortness of breath. Patient took his blood pressure at home he wasn't feeling well, this was is grams blood pressure. Patient is in the ER yesterday for overall not feeling well had testing done lab testing and other testing and also was admits to recently been started on an antidepressant. MD Complaint: abnormal lab, other (Elevated blood pressure) -: unknown Returns Today for: other (No chest pain no headache no shortness of breath) Symptoms Since Prior Visit: no new symptoms Context: planned re-check Associated Symptoms: none - Related Data Home Medications Medication Instructions Recorded Confirmed Omeprazole 20 mg PO BID 08/04/22 12/12/22 Citalopram Hydrobromide 20 mg PO DAILY 12/12/22 12/12/22 [Citalopram HBr] Previous Rx's Medication Instructions Recorded hydrOXYzine HCL [Atarax] 50 mg PO Q6H PRN #10 tablet 12/12/22 Allergies Allergy/AdvReac Type Severity Reaction Status Date / Time cat dander Allergy Unknown Verified 12/12/22 21:46 Review of Systems ROS Statement: Those systems with pertinent positive or pertinent negative responses have been documented in the HPI. ROS Other: All systems not noted in ROS Statement are negative. Past Medical History Past Medical History: GERD/Reflux History of Any Multi-Drug Resistant Organisms: None Reported Past Surgical History: No Surgical Hx Reported Additional Past Surgical History / Comment(s): Pyloric stenosis surgically repaired. Past Psychological History: Anxiety, Depression Smoking Status: Never smoker Past Alcohol Use History: None Reported Past Drug Use History: None Reported General Exam Limitations: no limitations General appearance: alert, in no apparent distress, anxious Head exam: Present: atraumatic, normocephalic, normal inspection Eye exam: Present: normal appearance, PERRL, EOMI. Absent: scleral icterus, conjunctival injection, periorbital swelling ENT exam: Present: normal exam, mucous membranes moist Neck exam: Present: normal inspection. Absent: tenderness, meningismus, lymphadenopathy Respiratory exam: Present: normal lung sounds bilaterally. Absent: respiratory distress, wheezes, rales, rhonchi, stridor Cardiovascular Exam: Present: regular rate, normal rhythm, normal heart sounds. Absent: systolic murmur, diastolic murmur, rubs, gallop, clicks GI/Abdominal exam: Present: soft, normal bowel sounds. Absent: distended, tenderness, guarding, rebound, rigid Extremities exam: Present: normal inspection, full ROM, normal capillary refill. Absent: tenderness, pedal edema, joint swelling, calf tenderness Back exam: Present: normal inspection Neurological exam: Present: alert, oriented X3, CN II-XII intact Psychiatric exam: Present: normal affect, normal mood Skin exam: Present: warm, dry, intact, normal color. Absent: rash Course Vital Signs 12/12/22 12/12/22 12/12/22 20:46 20:58 21:23 Temperature 98.8 F Pulse Rate 77 97 Pulse Rate [ 97 Identity Management Consultant ] Respiratory 18 Rate Blood Pressure 141/87 146/78 O2 Sat by Pulse 100 Oximetry 12/12/22 12/12/22 22:22 23:00 Temperature 98.7 F Pulse Rate 83 76 Pulse Rate [ Identity Management Consultant ] Respiratory 18 Rate Blood Pressure 122/74 121/76 O2 Sat by Pulse 97 97 Oximetry - Reevaluation(s) Reevaluation #1: 12/12/22 22:09 Medical record is reviewed Reevaluation #2: 12/12/22 22:09 Patient symptoms are improving here in the ER blood pressures improved with time Reevaluation #3: 12/12/22 22:09 Patient informed results questions answered Reevaluation #4: 12/12/22 22:09 Was pt. sent in by a medical professional or institution (, PA, LITIGATOR, urgent care, hospital, or long-term...) When possible be specific @ -no Did you speak to anyone other than the patient for history (EMS, parent, family, police, friend...)? What history was obtained from this source @ -no Did you review nursing and triage notes (agree or disagree)? Why? @ -agree Are old charts reviewed (outside hosp., previous admission, EMS record, old EKG, old radiological studies, urgent care reports/EKG's, long-term records)? Report findings @ -yes Differential Diagnosis (chest pain, altered mental status, abdominal pain women, abdominal pain men, vaginal bleeding, weakness, fever, dyspnea, syncope, headache, dizziness, GI bleed, back pain, seizure, CVA, palpatations, mental health, musculoskeletal)? @ -prior EKG interpreted by me (3pts min.). @ -yes X-rays interpreted by me (1pt min.). @ -no CT interpreted by me (1pt min.). @ -no U/S interpreted by me (1pt. min.). @ -no What testing was considered but not performed or refused? (CT, X-rays, U/S, labs)? Why? @ -none What meds were considered but not given or refused? Why? @ -none Did you discuss the management of the patient with other professionals (mark nava i.e. , PA, LITIGATOR, lab, RT, psych nurse, social sciences professor, advisor consultant, teacher, unarmed security officer, wrapper caser)? Give summary @ -no Was smoking cessation discussed for >3mins.? @ -no Was critical care preformed (if so, how long)? @ -no Were there social determinants of health that impacted care today? How? (Homelessness, low income, unemployed, alcoholism, drug addiction, transportation, low edu. Level, literacy, decrease access to med. care, fpc, rehab)? @ -none Was there de-escalation of care discussed even if they declined (Discuss DNR or withdrawal of care, Hospice)? DNR status @ -no What co-morbidities impacted this encounter? (DM, HTN, Smoking, COPD, CAD, Cancer, CVA, ARF, Chemo, Hep., AIDS, mental health diagnosis, sleep apnea, morbid obesity)? @ -none Was patient admitted / discharged? Hospital course, mention meds given and route, prescriptions, significant lab abnormalities, going to OR and other pertinent info. @ - 22 male to the emergency department for reevaluation. Patient was here yesterday for not feeling well. Patient states he felt well upon discharge on O2 today was found at home have an elevated blood pressure. Patient concern for elevated blood pressure presents to the emergency department without any current complaint and can be discharged home Discharge Undiagnosed new problem with uncertain prognosis? @ -no Drug Therapy requiring intensive monitoring for toxicity (Heparin, Nitro, Insulin, Cardizem)? @ -no Were any procedures done? @ -no Diagnosis/symptom? @ -Hypertension, anxiety Acute, or Chronic, or Acute on Chronic? @ -Acute Uncomplicated (without systemic symptoms) or Complicated (systemic symptoms)? @ -Complicated Side effects of treatment? @ -no Exacerbation, Progression, or Severe Exacerbation? @ -exacerbation Poses a threat to life or bodily function? How? (Chest pain, [place], [place], pneumonia, PE, COPD, DKA, ARF, appy, cholecystitis, CVA, Diverticulitis, Homicidal, Suicidal, threat to staff... and all critical care pts) @ -no Medical Decision Making - Medical Decision Making 22 male to the emergency department for reevaluation. Patient was here yesterday for not feeling well. Patient states he felt well upon discharge on O2 today was found at home have an elevated blood pressure. Patient concern for elevated blood pressure presents to the emergency department without any current complaint and can be discharged home - Lab Data Lab Results 12/12/22 Range/Units 20:57 POC Glucose (mg/dL) 125 H (70-110) mg/dL POC Glu Industrial Organizational Psychologist ID Siomara Bethea - EKG Data -: EKG Interpreted by Me (EKG is sinus 75 MN 167 QRS 94 QTC 380) Disposition Clinical Impression: Hypertension, Anxiety Narrative: Possible Hypertension Disposition: HOME SELF-CARE Condition: Good Instructions (If sedation given, give patient instructions): Hypertension (ED) Is patient prescribed a controlled substance at d/c from ED?: No Referrals: Mandeep Chaves MD [Primary Care Provider] - 1-2 days Time of Disposition: 22:10
[2022-12-12 23:02] VITALS: BP 121/76; PULSE 76; TEMP 98.7
== END 2022-12-12 23:02 | disposition home or self-care (01) ==
LOC: EC 20:44
DX: R03.0 Elevated blood-pressure reading, without diagnosis of hypertension (principal); I10 Essential (primary) hypertension; F41.9 Anxiety disorder, unspecified; K21.9 Gastro-esophageal reflux disease without esophagitis; F32.A Depression, unspecified; Z88.8 Allergy status to other drugs, medicaments and biological substances; Z79.899 Other long term (current) drug therapy
CPT/HCPCS: 36415; 99284

== ENCOUNTER → 2023-02-11 | Outpatient (CLI) | payer OTHER ==
--- NOTE | 2023-03-18 12:11 | EM ---
EVENT MONITOR STUDY PERFORMED: This is a 30-day event monitor. INDICATIONS: Palpitations. FINDINGS: This event monitor shows sinus rhythm with episodes of sinus bradycardia, sinus tachycardia, supraventricular ectopics. There were no episodes of sustained ventricular or supraventricular tachyarrhythmias. CONCLUSION: This 30-day event monitor showed sinus rhythm with episodes of sinus tachycardia. MMODL / IJN: [id number] /
== END | disposition home or self-care (01) ==
LOC: RADECHMAIN 07:21
PROVIDERS: ATTEND Family Medicine
DX: R00.0 Tachycardia, unspecified (principal); R00.2 Palpitations
CPT/HCPCS: 93270

== ENCOUNTER 2023-02-19 15:22 | Emergency (ER) | payer OTHER ==
--- NOTE | 2023-02-19 16:28 | ED ---
Arrhythmia/Palpitations HPI - General Source: patient Mode of arrival: ambulatory Limitations: no limitations <Bridger Gomez - Last Filed: 02/19/23 16:26> <El Martin - Last Filed: 02/19/23 18:23> - General Chief Complaint: Arrhythmia/Palpitations Stated Complaint: racing heart Time Seen by Provider: 02/19/23 16:26 - History of Present Illness Initial Comments: 22-year-old male presenting with chief complaint of palpitations. Patient states he felt his heart was racing today, when he took his heart rate at home was about 140. No chest pain or difficulty breathing. (Bridger Gomez) - Related Data Home Medications Medication Instructions Recorded Confirmed Omeprazole 20 mg PO BID 08/04/22 12/12/22 Citalopram Hydrobromide 20 mg PO DAILY 12/12/22 12/12/22 [Citalopram HBr] Previous Rx's Medication Instructions Recorded hydrOXYzine HCL [Atarax] 50 mg PO Q6H PRN #10 tablet 12/12/22 Allergies Allergy/AdvReac Type Severity Reaction Status Date / Time No Known Allergies Allergy Verified 02/19/23 15:45 Review of Systems ROS Other: All systems not noted in ROS Statement are negative. <Bridger Gomez - Last Filed: 02/19/23 16:26> ROS Other: All systems not noted in ROS Statement are negative. <El Martin - Last Filed: 02/19/23 18:23> ROS Statement: Those systems with pertinent positive or pertinent negative responses have been documented in the HPI. Past Medical History Past Medical History: GERD/Reflux History of Any Multi-Drug Resistant Organisms: None Reported Past Surgical History: No Surgical Hx Reported Additional Past Surgical History / Comment(s): Pyloric stenosis surgically repaired. Past Psychological History: Anxiety, Depression Smoking Status: Never smoker Past Alcohol Use History: None Reported Past Drug Use History: None Reported <Bridger Gomez - Last Filed: 02/19/23 16:26> General Exam Limitations: no limitations <Bridger Gomez - Last Filed: 02/19/23 16:26> - General Exam Comments Initial Comments: Visual Physical Exam Vital signs reviewed General: Well-appearing, nontoxic, no acute distress. Head: Normocephalic, atraumatic Eyes: PERRLA, EOMI ENT: Airway patent Chest: Nonlabored breathing Skin: No visual rash, normal skin tone Neuro: Alert and oriented 3 Musculoskeletal: No gross abnormalities (Bridger Gomez) Course Vital Signs 02/19/23 02/19/23 02/19/23 15:42 17:34 17:35 Temperature 99.3 F 98.2 F Pulse Rate 117 H 114 H Pulse Rate [ 105 H Precision Honer ] Respiratory 18 20 Rate Blood Pressure 142/74 115/82 O2 Sat by Pulse 97 100 Oximetry Medical Decision Making <Bridger Gomez - Last Filed: 02/19/23 16:26> - Lab Data Result diagrams: 02/19/23 15:50 02/19/23 15:50 <El Martin - Last Filed: 02/19/23 18:23> - Medical Decision Making I performed the quick note portion of this visit, signed Bridger Gomez PA-C (Bridger Gomez) - Lab Data Lab Results 02/19/23 02/19/23 02/19/23 Range/Units 15:50 15:50 15:50 WBC 16.6 H (3.8-10.6) k/uL RBC 5.29 (4.30-5.90) m/uL Hgb 15.3 (13.0-17.5) gm/dL Hct 45.3 (39.0-53.0) % MCV 85.6 (80.0-100.0) fL MCH 29.0 (25.0-35.0) pg MCHC 33.9 (31.0-37.0) g/dL RDW 13.6 (11.5-15.5) % Plt Count 385 (150-450) k/uL MPV 7.2 Neutrophils % 68 % Lymphocytes % 20 % Monocytes % 10 % Eosinophils % 0 % Basophils % 0 % Neutrophils # 11.3 H (1.3-7.7) k/uL Lymphocytes # 3.3 (1.0-4.8) k/uL Monocytes # 1.7 H (0-1.0) k/uL Eosinophils # 0.1 (0-0.7) k/uL Basophils # 0.1 (0-0.2) k/uL PT 10.4 (10.0-12.5) sec INR 0.9 (<1.2) APTT 24.8 (22.0-30.0) sec Sodium 143 (137-145) mmol/L Potassium 4.0 (3.5-5.1) mmol/L Chloride 105 (98-107) mmol/L Carbon Dioxide 22 (22-30) mmol/L Anion Gap 16 mmol/L BUN 11 (9-20) mg/dL Creatinine 0.90 (0.66-1.25) mg/dL Est GFR (CKD-EPI)AfAm >90 (>60 ml/min/1.73 sqM) Est GFR (CKD-EPI)NonAf >90 (>60 ml/min/1.73 sqM) Glucose 101 H (74-99) mg/dL Calcium 10.5 H (8.4-10.2) mg/dL Magnesium 2.2 (1.6-2.3) mg/dL Total Bilirubin 0.8 (0.2-1.3) mg/dL AST 25 (17-59) U/L ALT 40 (4-49) U/L Alkaline Phosphatase 80 (38-126) U/L Troponin I (0.000-0.034) ng/mL Total Protein 8.4 H (6.3-8.2) g/dL Albumin 5.2 H (3.5-5.0) g/dL 02/19/23 Range/Units 15:50 WBC (3.8-10.6) k/uL RBC (4.30-5.90) m/uL Hgb (13.0-17.5) gm/dL Hct (39.0-53.0) % MCV (80.0-100.0) fL MCH (25.0-35.0) pg MCHC (31.0-37.0) g/dL RDW (11.5-15.5) % Plt Count (150-450) k/uL MPV Neutrophils % % Lymphocytes % % Monocytes % % Eosinophils % % Basophils % % Neutrophils # (1.3-7.7) k/uL Lymphocytes # (1.0-4.8) k/uL Monocytes # (0-1.0) k/uL Eosinophils # (0-0.7) k/uL Basophils # (0-0.2) k/uL PT (10.0-12.5) sec INR (<1.2) APTT (22.0-30.0) sec Sodium (137-145) mmol/L Potassium (3.5-5.1) mmol/L Chloride (98-107) mmol/L Carbon Dioxide (22-30) mmol/L Anion Gap mmol/L BUN (9-20) mg/dL Creatinine (0.66-1.25) mg/dL Est GFR (CKD-EPI)AfAm (>60 ml/min/1.73 sqM) Est GFR (CKD-EPI)NonAf (>60 ml/min/1.73 sqM) Glucose (74-99) mg/dL Calcium (8.4-10.2) mg/dL Magnesium (1.6-2.3) mg/dL Total Bilirubin (0.2-1.3) mg/dL AST (17-59) U/L ALT (4-49) U/L Alkaline Phosphatase (38-126) U/L Troponin I <0.012 (0.000-0.034) ng/mL Total Protein (6.3-8.2) g/dL Albumin (3.5-5.0) g/dL Disposition <Bridger Gomez - Last Filed: 02/19/23 16:26> Is patient prescribed a controlled substance at d/c from ED?: No Time of Disposition: 18:20 <El Martin - Last Filed: 02/19/23 18:23> Clinical Impression: Tachycardia, Palpitations Disposition: HOME SELF-CARE Condition: Good Instructions (If sedation given, give patient instructions): Heart Palpitations (ED), Tachycardia (ED) Referrals: Mandeep Chaves MD [Primary Care Provider] - 1-2 days
[2023-02-19 17:29] LABS: Basophils # (A) 0.1 k/uL (0-0.2); Basophils % (A) 0 %; Eosinophils # (A) 0.1 k/uL (0-0.7); Eosinophils % (A) 0 %; HCT 45.3 % (39.0-53.0); HGB 15.3 gm/dL (13.0-17.5); Lymphocytes # (A) 3.3 k/uL (1.0-4.8); Lymphocytes % (A) 20 %; MCHC 33.9 g/dL (31.0-37.0); MCV 85.6 fL (80.0-100.0); Mean Platelet Volume 7.2; Monocytes # (A) 1.7 k/uL (0-1.0); Monocytes % (A) 10 %; Neutrophils # (A) 11.3 k/uL (1.3-7.7); Neutrophils % (A) 68 %; Platelet Count 385 k/uL (150-450); RBC 5.29 m/uL (4.30-5.90); RDW 13.6 % (11.5-15.5); WBC 16.6 k/uL (3.8-10.6)
[2023-02-19 17:41] LABS: ALT 40 U/L (4-49); AST 25 U/L (17-59); African American GFR (CKD) >90 (>60 ml/min/1.73 sqM); Albumin 5.2 g/dL (3.5-5.0); Alkaline Phosphatase 80 U/L (38-126); Anion Gap 16 mmol/L; Blood Urea Nitrogen 11 mg/dL (9-20); Calcium 10.5 mg/dL (8.4-10.2); Carbon Dioxide 22 mmol/L (22-30); Chloride 105 mmol/L (98-107); Glucose 101 mg/dL (74-99); Magnesium 2.2 mg/dL (1.6-2.3); Non-African American GFR(CKD) >90 (>60 ml/min/1.73 sqM); Sodium 143 mmol/L (137-145); Total Bilirubin 0.8 mg/dL (0.2-1.3); Total Protein 8.4 g/dL (6.3-8.2)
[2023-02-19 17:44] VITALS: BP 115/82; PULSE 105; RESP 20; TEMP 98.2
[2023-02-19 17:45] LABS: INR 0.9 (<1.2); Partial Thromboplastin Time 24.8 sec (22.0-30.0); Prothrombin Time 10.4 sec (10.0-12.5)
--- NOTE | 2023-02-19 17:47 | XR ---
EXAMINATION TYPE: XR chest 2V DATE OF EXAM: 02/19/2023 5:20 PM CLINICAL INDICATION:Male, 22 years old with history of dysrhythmia; COMPARISON: Chest radiographs from 01/06/2023 TECHNIQUE: XR chest 2V Frontal and lateral views of the chest. FINDINGS: Lungs/Pleura: There is no evidence of pleural effusion, focal consolidation, or pneumothorax. Pulmonary vascularity: Unremarkable. Heart/mediastinum: Cardiomediastinal silhouette is unremarkable. Musculoskeletal: No acute osseous pathology. Other findings: None IMPRESSION: No acute cardiopulmonary disease/process.
== END 2023-02-19 18:50 | disposition home or self-care (01) ==
LOC: EC 15:22
DX: R00.2 Palpitations (principal); R00.0 Tachycardia, unspecified; K21.9 Gastro-esophageal reflux disease without esophagitis; Z86.59 Personal history of other mental and behavioral disorders; Z79.899 Other long term (current) drug therapy
CPT/HCPCS: 36415; 71046; 80053; 83735; 84484; 85025; 85610; 85730; 93005; 99285

== ENCOUNTER 2023-03-18 14:40 | Emergency (ER) | payer OTHER ==
[2023-03-18 15:21] VITALS: RESP 16; TEMP 97.6
--- NOTE | 2023-03-18 15:39 | ED ---
Dizziness HPI - General Source: patient, RN notes reviewed Mode of arrival: ambulatory Limitations: no limitations <Jose Barney - Last Filed: 03/18/23 15:39> - General Source: patient, RN notes reviewed Mode of arrival: ambulatory Limitations: no limitations <Ashlee Whitman - Last Filed: 03/18/23 18:28> - General Chief Complaint: Dizziness Stated Complaint: dizzy Time Seen by Provider: 03/18/23 15:39 - History of Present Illness Initial Comments: 22-year-old male presents emergency Department chief complaint dizziness. Patient states that he woke up around 1:30 states he sat up states room was spinning. Patient states he does have an increased congestion postnasal drainage issues. He states never suffered dizziness like this. Any chest pain or shortness breath he states he does feel better at this time. (Jose Barney) 32-year-old male presents to the emergency department with chief complaint of dizziness. He states that this started any woke up today around 1:30 PM. He states that he felt like he was spinning. He states that this lasted around 30 minutes. It was worse when he laid down in bed. It is since subsided. Past medical history includes GERD, allergic rhinitis. He states that he takes Zyrtec and fluticasone daily for this. He denies any other symptoms at this time. He denies fever, chills, nausea, vomiting, chest pain or shortness of breath. (Ashlee Whitman) - Related Data Home Medications Medication Instructions Recorded Confirmed Omeprazole 20 mg PO BID 08/04/22 02/19/23 Cetirizine HCl/Pseudoephedrine 2 tab PO Q12H 02/19/23 02/19/23 [Zyrtec-D ER 5 mg-120 mg Tablet] busPIRone HCl [Buspar] 10 mg PO DAILY@1300 02/19/23 02/19/23 Allergies Allergy/AdvReac Type Severity Reaction Status Date / Time No Known Allergies Allergy Verified 03/18/23 15:10 Review of Systems ROS Other: All systems not noted in ROS Statement are negative. <Jose Barney - Last Filed: 03/18/23 15:39> ROS Other: All systems not noted in ROS Statement are negative. <Ashlee Whitman - Last Filed: 03/18/23 18:28> ROS Statement: Those systems with pertinent positive or pertinent negative responses have been documented in the HPI. Past Medical History Past Medical History: GERD/Reflux History of Any Multi-Drug Resistant Organisms: None Reported Past Surgical History: No Surgical Hx Reported Additional Past Surgical History / Comment(s): Pyloric stenosis surgically repaired. Past Psychological History: Anxiety, Depression Smoking Status: Never smoker Past Alcohol Use History: None Reported Past Drug Use History: None Reported <Jose Barney - Last Filed: 03/18/23 15:39> General Exam Limitations: no limitations <Jose Barney - Last Filed: 03/18/23 15:39> Limitations: no limitations General appearance: alert, in no apparent distress Head exam: Present: atraumatic, normocephalic, normal inspection Eye exam: Present: normal appearance, PERRL, EOMI. Absent: scleral icterus, conjunctival injection, periorbital swelling ENT exam: Present: normal exam, mucous membranes moist Neck exam: Present: normal inspection. Absent: tenderness, meningismus, lymphadenopathy Respiratory exam: Present: normal lung sounds bilaterally. Absent: respiratory distress, wheezes, rales, rhonchi, stridor Cardiovascular Exam: Present: regular rate, normal rhythm, normal heart sounds. Absent: systolic murmur, diastolic murmur, rubs, gallop, clicks Extremities exam: Present: normal inspection, full ROM, normal capillary refill. Absent: tenderness, pedal edema, joint swelling, calf tenderness Back exam: Present: normal inspection Neurological exam: Present: alert, oriented X3, CN II-XII intact, normal gait. Absent: motor sensory deficit Psychiatric exam: Present: normal affect, normal mood Skin exam: Present: warm, dry, intact, normal color. Absent: rash <Ashlee Whitman - Last Filed: 03/18/23 18:28> - General Exam Comments Initial Comments: Visual Physical Exam Vital signs reviewed General: Well-appearing, nontoxic, no acute distress. Head: Normocephalic, atraumatic Eyes: PERRLA, EOMI ENT: Airway patent Chest: Nonlabored breathing Skin: No visual rash, normal skin tone Neuro: Alert and oriented 3 Musculoskeletal: No gross abnormalities (Jose Barney) Course Vital Signs 03/18/23 15:09 Temperature 97.6 F Pulse Rate 98 Respiratory 16 Rate Blood Pressure 122/78 O2 Sat by Pulse 99 Oximetry Medical Decision Making <Jose Barney - Last Filed: 03/18/23 15:39> - Lab Data Result diagrams: 03/18/23 15:54 03/18/23 15:54 <Ashlee Whitman - Last Filed: 03/18/23 18:28> - Medical Decision Making I completed the quick note portion of this chart signed Jose Barney PA-C (Jose Barney) Was pt. sent in by a medical professional or institution (, [facility], INSPECTOR OF DREDGING, urgent care, hospital, or half-way...) When possible be specific @ -No Did you speak to anyone other than the patient for history (EMS, parent, family, police, friend...)? What history was obtained from this source @ -No Did you review nursing and triage notes (agree or disagree)? Why? @ -I reviewed and agree with nursing and triage notes Were old charts reviewed (outside hosp., previous admission, EMS record, old EKG, old radiological studies, urgent care reports/EKG's, half-way records)? Report findings @ -No old charts were reviewed Differential Diagnosis (chest pain, altered mental status, abdominal pain women, abdominal pain men, vaginal bleeding, weakness, fever, dyspnea, syncope, headache, dizziness, GI bleed, back pain, seizure, CVA, palpatations, mental health, musculoskeletal)? @ -not applicable EKG interpreted by me (3pts min.). @ -EKG at 1557 shows sinus rhythm with sinus arrhythmia rate 81, [place] 151, QRS 95, QTQTc 143118 X-rays interpreted by me (1pt min.). @ -None done CT interpreted by me (1pt min.). @ -None done U/S interpreted by me (1pt. min.). @ -None done What testing was considered but not performed or refused? (CT, X-rays, U/S, labs)? Why? @ -None What meds were considered but not given or refused? Why? @ -None Did you discuss the management of the patient with other professionals (professionals i.e. , [facility]IS[facility], INSPECTOR OF [employer]EDGING, lab, RT, psych nurse, geriatric social worker, project executive, teacher, accounts officer, protective services case worker)? Give summary @ -No Was smoking cessation discussed for >3mins.? @ -No Was critical care preformed (if so, how long)? @ -No Were there social determinants of health that impacted care today? How? (Homelessness, low income, unemployed, alcoholism, drug addiction, transportation, low edu. Level, literacy, decrease access to med. care, fpc, rehab)? @ -No Was there de-escalation of care discussed even if they declined (Discuss DNR or withdrawal of care, Hospice)? DNR status @ -No What co-morbidities impacted this encounter? (DM, HTN, Smoking, COPD, CAD, Cancer, CVA, ARF, Chemo, Hep., AIDS, mental health diagnosis, sleep apnea, morbid obesity)? @ -None Was patient admitted / discharged? Hospital course, mention meds given and route, prescriptions, significant lab abnormalities, going to OR and other pertinent info. @ -Discharged. Patient presented to the emergency department chief complaint of dizziness 30 minutes. This is since resolved. EKG at 1557 shows sinus rhythm with sinus arrhythmia. Laboratory studies obtained which show CBC and CMP unremarkable, d-dimer less than 0.17. Patient received 1 L normal saline. Patient advised on findings of testing and is understanding and agreeable with discharge plan. Patient stable at time of discharge. Case discussed with Dr. Kim Undiagnosed new problem with uncertain prognosis? @ -No Drug Therapy requiring intensive monitoring for toxicity (Heparin, Nitro, Insulin, Cardizem)? @ -No Were any procedures done? @ -No Diagnosis/symptom? @ -Dizziness Acute, or Chronic, or Acute on Chronic? @ -Acute Uncomplicated (without systemic symptoms) or Complicated (systemic symptoms)? @ -Uncomplicated Side effects of treatment? @ -No Exacerbation, Progression, or Severe Exacerbation? @ -No Poses a threat to life or bodily function? How? (Chest pain, [place], [place], pneumonia, PE, COPD, DKA, ARF, appy, cholecystitis, CVA, Diverticulitis, Homicidal, Suicidal, threat to staff... and all critical care pts) @ -No (Ashlee Whitman) - Lab Data Lab Results 03/18/23 03/18/23 03/18/23 Range/Units 15:54 15:54 16:51 WBC 8.4 (3.8-10.6) k/uL RBC 5.00 (4.30-5.90) m/uL Hgb 15.1 (13.0-17.5) gm/dL Hct 43.2 (39.0-53.0) % MCV 86.4 (80.0-100.0) fL MCH 30.2 (25.0-35.0) pg MCHC 34.9 (31.0-37.0) g/dL RDW 13.4 (11.5-15.5) % Plt Count 281 (150-450) k/uL MPV 7.2 Neutrophils % 52 % Lymphocytes % 33 % Monocytes % 7 % Eosinophils % 5 % Basophils % 1 % Neutrophils # 4.3 (1.3-7.7) k/uL Lymphocytes # 2.8 (1.0-4.8) k/uL Monocytes # 0.6 (0-1.0) k/uL Eosinophils # 0.4 (0-0.7) k/uL Basophils # 0.1 (0-0.2) k/uL PT (10.0-12.5) sec INR (<1.2) APTT (22.0-30.0) sec D-Dimer (<0.60) mg/L FEU Sodium 143 (137-145) mmol/L Potassium 4.0 (3.5-5.1) mmol/L Chloride 105 (98-107) mmol/L Carbon Dioxide 25 (22-30) mmol/L Anion Gap 13 mmol/L BUN 9 (9-20) mg/dL Creatinine 0.98 (0.66-1.25) mg/dL Est GFR (CKD-EPI)AfAm >90 (>60 ml/min/1.73 sqM) Est GFR (CKD-EPI)NonAf >90 (>60 ml/min/1.73 sqM) Glucose 89 (74-99) mg/dL Calcium 9.8 (8.4-10.2) mg/dL Total Bilirubin 1.1 (0.2-1.3) mg/dL AST 32 (17-59) U/L ALT 47 (4-49) U/L Alkaline Phosphatase 66 (38-126) U/L Total Protein 7.6 (6.3-8.2) g/dL Albumin 4.7 (3.5-5.0) g/dL Urine Color Colorless Urine Appearance Clear (Clear) Urine pH 6.5 (5.0-8.0) Ur Specific [place] 1.002 (1.001-1.035) Urine Protein Negative (Negative) Urine Glucose (UA) Negative (Negative) Urine Ketones Negative (Negative) Urine Blood Negative (Negative) Urine Nitrite Negative (Negative) Urine Bilirubin Negative (Negative) Urine Urobilinogen <2.0 (<2.0) mg/dL Ur Leukocyte Esterase Negative (Negative) Urine Opiates Screen Not Detected (NotDetected) Ur Oxycodone Screen Not Detected (NotDetected) Urine Methadone Screen Not Detected (NotDetected) Ur Propoxyphene Screen Not Detected (NotDetected) Ur Barbiturates Screen Not Detected (NotDetected) U Tricyclic Antidepress Not Detected (NotDetected) Ur Phencyclidine Scrn Not Detected (NotDetected) Ur Amphetamines Screen Not Detected (NotDetected) U Methamphetamines Scrn Not Detected (NotDetected) U Benzodiazepines Scrn Not Detected (NotDetected) Urine Cocaine Screen Not Detected (NotDetected) U Marijuana (THC) Screen Not Detected (NotDetected) 03/18/23 Range/Units 17:39 WBC (3.8-10.6) k/uL RBC (4.30-5.90) m/uL Hgb (13.0-17.5) gm/dL Hct (39.0-53.0) % MCV (80.0-100.0) fL MCH (25.0-35.0) pg MCHC (31.0-37.0) g/dL RDW (11.5-15.5) % Plt Count (150-450) k/uL MPV Neutrophils % % Lymphocytes % % Monocytes % % Eosinophils % % Basophils % % Neutrophils # (1.3-7.7) k/uL Lymphocytes # (1.0-4.8) k/uL Monocytes # (0-1.0) k/uL Eosinophils # (0-0.7) k/uL Basophils # (0-0.2) k/uL PT 11.0 (10.0-12.5) sec INR 1.0 (<1.2) APTT 25.7 (22.0-30.0) sec D-Dimer <0.17 (<0.60) mg/L FEU Sodium (137-145) mmol/L Potassium (3.5-5.1) mmol/L Chloride (98-107) mmol/L Carbon Dioxide (22-30) mmol/L Anion Gap mmol/L BUN (9-20) mg/dL Creatinine (0.66-1.25) mg/dL Est GFR (CKD-EPI)AfAm (>60 ml/min/1.73 sqM) Est GFR (CKD-EPI)NonAf (>60 ml/min/1.73 sqM) Glucose (74-99) mg/dL Calcium (8.4-10.2) mg/dL Total Bilirubin (0.2-1.3) mg/dL AST (17-59) U/L ALT (4-49) U/L Alkaline Phosphatase (38-126) U/L Total Protein (6.3-8.2) g/dL Albumin (3.5-5.0) g/dL Urine Color Urine Appearance (Clear) Urine pH (5.0-8.0) Ur Specific [place] (1.001-1.035) Urine Protein (Negative) Urine Glucose (UA) (Negative) Urine Ketones (Negative) Urine Blood (Negative) Urine Nitrite (Negative) Urine Bilirubin (Negative) Urine Urobilinogen (<2.0) mg/dL Ur Leukocyte Esterase (Negative) Urine Opiates Screen (NotDetected) Ur Oxycodone Screen (NotDetected) Urine Methadone Screen (NotDetected) Ur Propoxyphene Screen (NotDetected) Ur Barbiturates Screen (NotDetected) U Tricyclic Antidepress (NotDetected) Ur Phencyclidine Scrn (NotDetected) Ur Amphetamines Screen (NotDetected) U Methamphetamines Scrn (NotDetected) U Benzodiazepines Scrn (NotDetected) Urine Cocaine Screen (NotDetected) U Marijuana (THC) Screen (NotDetected) Disposition <Jose Barney - Last Filed: 03/18/23 15:39> Is patient prescribed a controlled substance at d/c from ED?: No <Ashlee Whitman - Last Filed: 03/18/23 18:28> Clinical Impression: Vertigo Disposition: HOME SELF-CARE Condition: Stable Instructions (If sedation given, give patient instructions): Dizziness (ED) Additional Instructions: Please follow up with your primary care provider. Return to the emergency department for new or worsening symptoms. Referrals: Mandeep Chaves MD [Primary Care Provider] - 1-2 days
[2023-03-18 16:12] LABS: Basophils # (A) 0.1 k/uL (0-0.2); Basophils % (A) 1 %; Eosinophils # (A) 0.4 k/uL (0-0.7); Eosinophils % (A) 5 %; HCT 43.2 % (39.0-53.0); HGB 15.1 gm/dL (13.0-17.5); Lymphocytes # (A) 2.8 k/uL (1.0-4.8); Lymphocytes % (A) 33 %; MCH 30.2 pg (25.0-35.0); MCHC 34.9 g/dL (31.0-37.0); MCV 86.4 fL (80.0-100.0); Mean Platelet Volume 7.2; Monocytes # (A) 0.6 k/uL (0-1.0); Monocytes % (A) 7 %; Neutrophils # (A) 4.3 k/uL (1.3-7.7); Neutrophils % (A) 52 %; Platelet Count 281 k/uL (150-450); RDW 13.4 % (11.5-15.5); WBC 8.4 k/uL (3.8-10.6)
[2023-03-18 16:31] LABS: ALT 47 U/L (4-49); AST 32 U/L (17-59); African American GFR (CKD) >90 (>60 ml/min/1.73 sqM); Albumin 4.7 g/dL (3.5-5.0); Alkaline Phosphatase 66 U/L (38-126); Anion Gap 13 mmol/L; Blood Urea Nitrogen 9 mg/dL (9-20); Calcium 9.8 mg/dL (8.4-10.2); Carbon Dioxide 25 mmol/L (22-30); Chloride 105 mmol/L (98-107); Glucose 89 mg/dL (74-99); Non-African American GFR(CKD) >90 (>60 ml/min/1.73 sqM); Sodium 143 mmol/L (137-145); Total Bilirubin 1.1 mg/dL (0.2-1.3); Total Protein 7.6 g/dL (6.3-8.2)
[2023-03-18] MEDS ORDERED: SODIUM CHLORIDE 0.9% 1,000 ML IV ONE (16:34)
[2023-03-18 17:02] LABS: Appearance,Urine Clear (Clear); Bilirubin,Urine Negative (Negative); Blood,Urine Negative (Negative); Color,Urine Colorless; Glucose,Urine (UA) Negative (Negative); Ketones,Urine Negative (Negative); Leukocyte Esterase,Urine Negative (Negative); Nitrite,Urine Negative (Negative); PH, Urine 6.5 (5.0-8.0); Protein,Urine Negative (Negative); Specific Gravity,Urine 1.002 (1.001-1.035); Urobilinogen,Urine <2.0 mg/dL (<2.0)
[2023-03-18 17:15] LABS: Amphetamine Screen,Urine Not Detected (NotDetected); Barbiturate Screen,Urine Not Detected (NotDetected); Benzodiazepines Screen,Urine Not Detected (NotDetected); Cocaine Screen,Urine Not Detected (NotDetected); Methadone Screen, Urine Not Detected (NotDetected); Opiate Screen,Urine Not Detected (NotDetected); Oxycodone Screen, Urine Not Detected (NotDetected); Phencyclidine Screen,Urine Not Detected (NotDetected); Tricyclic Antidepressant,Urine Not Detected (NotDetected); Urn Cannabinoid Scrn Not Detected (NotDetected)
[2023-03-18 18:13] LABS: Partial Thromboplastin Time 25.7 sec (22.0-30.0)
[2023-03-18 18:53] VITALS: BP 120/84; PULSE 81
== END 2023-03-18 18:33 | disposition home or self-care (01) ==
LOC: EC 14:40
DX: R42 Dizziness and giddiness (principal); K21.9 Gastro-esophageal reflux disease without esophagitis; F41.9 Anxiety disorder, unspecified; F32.A Depression, unspecified; Z79.899 Other long term (current) drug therapy
CPT/HCPCS: 36415; 80053; 80306; 81003; 85025; 85379; 85610; 85730; 93005; 96360; 99284

== ENCOUNTER → 2023-04-02 | Outpatient (CLI) | payer OTHER | END | disposition home or self-care (01) | LOC: LABWHC1 13:46 | PROVIDERS: ATTEND Nurse Practitioner Family | DX: R41.3 Other amnesia (principal) | CPT/HCPCS: 36415; 82607; 82746; 84443; 86780 ==

== ENCOUNTER 2023-05-09 08:30 | Emergency (ER) | payer OTHER ==
[2023-05-09] MEDS ORDERED: IBUPROFEN 800 MG TAB PO STA (11:06)
[2023-05-09] MEDS ORDERED: ACETAMINOPHEN TAB 500 MG TAB PO STA (11:06)
[2023-05-09] MEDS ORDERED: LIDOCAINE VISCOUS 2% 15 ML CUP PO ONE (11:06)
[2023-05-09] MEDS ORDERED: DEXAMETHASONE SOD PHOSPHATE 10 MG/ML 1 ML VIAL IM STA (11:07)
--- NOTE | 2023-05-09 11:21 | ED ---
ENT HPI - General Chief complaint: ENT Stated complaint: fever sore throat Time Seen by Provider: 05/09/23 08:51 Source: patient, RN notes reviewed Mode of arrival: ambulatory Limitations: no limitations - History of Present Illness Initial comments: This is a 22-year-old male who presents to the emergency department for a fever and a sore throat. States that this began this morning. Recently finished a course of doxycycline 1.5 weeks ago and prior to that he was on a course of steroids. Denies any coughing, congestion, or sick contacts. MD complaint: sore throat - Related Data Home Medications Medication Instructions Recorded Confirmed Omeprazole 20 mg PO BID 08/04/22 02/19/23 Cetirizine HCl/Pseudoephedrine 2 tab PO Q12H 02/19/23 02/19/23 [Zyrtec-D ER 5 mg-120 mg Tablet] busPIRone HCl [Buspar] 10 mg PO DAILY@1300 02/19/23 02/19/23 Previous Rx's Medication Instructions Recorded lidocaine HCL [Lidocaine HCl 10 ml PO Q4-6H PRN #100 ml 05/09/23 Viscous] Allergies Allergy/AdvReac Type Severity Reaction Status Date / Time No Known Allergies Allergy Verified 03/18/23 15:10 Review of Systems ROS Statement: Those systems with pertinent positive or pertinent negative responses have been documented in the HPI. ROS Other: All systems not noted in ROS Statement are negative. Past Medical History Past Medical History: GERD/Reflux History of Any Multi-Drug Resistant Organisms: None Reported Past Surgical History: No Surgical Hx Reported Additional Past Surgical History / Comment(s): Pyloric stenosis surgically repaired. Past Psychological History: Anxiety, Depression Smoking Status: Never smoker Past Alcohol Use History: None Reported Past Drug Use History: None Reported General Exam Limitations: no limitations General appearance: alert, in no apparent distress Head exam: Present: atraumatic, normocephalic, normal inspection ENT exam: Present: other (Posterior pharyngeal erythema with 2+ tonsillar hypertrophy. No exudates.) Respiratory exam: Present: normal lung sounds bilaterally. Absent: respiratory distress, wheezes, rales, rhonchi, stridor Cardiovascular Exam: Present: regular rate, normal rhythm, normal heart sounds. Absent: systolic murmur, diastolic murmur, rubs, gallop, clicks Neurological exam: Present: alert, oriented X3, CN II-XII intact Psychiatric exam: Present: normal affect, normal mood Skin exam: Present: warm, dry, intact, normal color. Absent: rash Course Vital Signs 05/09/23 05/09/23 08:37 13:54 Temperature 99.8 F H 97.1 F L Pulse Rate 141 H 109 H Respiratory 20 18 Rate Blood Pressure 142/72 118/82 O2 Sat by Pulse 97 98 Oximetry Medical Decision Making - Medical Decision Making This is a 22-year-old male who presents to the emergency department for a fever and a sore throat. Was pt. sent in by a medical professional or institution? @ -No Did you speak to anyone other than the patient for history? @ -No Did you review nursing and triage notes? @ -Yes, and I agree, it is accurate with regards to the patient's symptoms. Were old charts reviewed? @ -No Differential Diagnosis? @ -Differential Sore Throat: Strep pharyngitis, herpes zoster, COVID, influenza, GERD, allergic rhinitis, mononucleosis, this is not meant to be an all-inclusive list. EKG interpreted by me (3pts min.)? @ -Not obtained X-rays interpreted by me (1pt min.)? @ -Not obtained CT interpreted by me (1pt min.)? @ -Not obtained U/S interpreted by me (1pt. min.)? @ -Not obtained What testing was considered but not performed? (CT, X-rays, U/S, labs)? Why? @ -None What meds were considered but not given? Why? @ -None Did you discuss the management of the patient with other professionals? @ -No Did you reconcile home meds? @ -No Was smoking cessation discussed for >3mins.? @ -No Was critical care preformed (if so, how long)? @ -No Were there social determinants of health that impacted care today? How? (Homelessness, low income, unemployed, alcoholism, drug addiction, transportation, low edu. Level, literacy, decrease access to med. care, snf, rehab)? @ -No Was there de-escalation of care discussed even if they declined? (Discuss DNR or withdrawal of care, Hospice)? @ -No What co-morbidities impacted this encounter? (DM, HTN, Smoking, COPD, CAD, Cancer, CVA, Hep., AIDS, mental health diagnosis, sleep apnea, morbid obesity)? @ -None Was patient admitted / discharged? @ -Discharged. COVID, influenza, and RSV testing were negative. Rapid strep and heterophile testing negative. Patient was given a dose of Decadron in the emergency department and ibuprofen and Tylenol were administered for the fever. Viscous lidocaine was also administered for the sore throat, which the patient felt was beneficial. Advised that this is likely a viral pharyngitis. Rx for viscous lidocaine provided with dosing instructions reviewed. Otherwise advised follow-up with his primary care provider. Patient disharged home in stable condition. Undiagnosed new problem with uncertain prognosis? @ -None Drug Therapy requiring intensive monitoring for toxicity (Heparin, Nitro, Insulin, Cardizem)? @ -None Were any procedures done? @ -None Diagnosis/symptom? @ -Viral pharyngitis Acute, or Chronic, or Acute on Chronic? @ -Acute Uncomplicated (without systemic symptoms) or Complicated (systemic symptoms)? @ -Uncomplicated Side effects of treatment? @ -None Exacerbation, Progression, or Severe Exacerbation] @ -Not applicable Poses a threat to life or bodily function? @ -No Return precautions reviewed in depth, the patient is instructed to return to the emergency department with any new, worsening, or concerning symptoms. Patient verbalized understanding. This case was discussed in detail with the attending ED physician, Dr. Welch. Presentation, findings, and treatment plan discussed in detail as well. - Lab Data Lab Results 05/09/23 05/09/23 05/09/23 Range/Units 09:01 09:01 11:47 Heterophile Antibody Negative (Negative) Influenza Type A (PCR) Not Detected (Not Detectd) Influenza Type B (PCR) Not Detected (Not Detectd) RSV (PCR) Not Detected (Not Detectd) SARS-CoV-2 (PCR) Not Detected (Not Detectd) Group A Strep (PCR) NOT DETECTED (Not Detectd) Disposition Clinical Impression: Acute viral pharyngitis Disposition: HOME SELF-CARE Instructions (If sedation given, give patient instructions): Pharyngitis (ED) Additional Instructions: Return to the emergency department with any new, worsening, or concerning symptoms. You can use the lidocaine every 4-6 hours as needed to help with the sore throat. Alternate with ibuprofen and Tylenol as needed for any additional fevers. Follow up with your primary care provider in 1-2 days. Prescriptions: lidocaine HCL [Lidocaine HCl Viscous] 10 ml PO Q4-6H PRN #100 ml PRN Reason: Sore Throat Is patient prescribed a controlled substance at d/c from ED?: No Referrals: Mandeep Chaves MD [Primary Care Provider] - 1-2 days Time of Disposition: 13:35
[2023-05-09 14:14] VITALS: BP 118/82; PULSE 109; RESP 18; TEMP 97.1
== END 2023-05-09 13:55 | disposition home or self-care (01) ==
LOC: EC 08:30
DX: J02.8 Acute pharyngitis due to other specified organisms (principal); K21.9 Gastro-esophageal reflux disease without esophagitis; F41.9 Anxiety disorder, unspecified; F32.A Depression, unspecified; Z79.899 Other long term (current) drug therapy; Z20.822 Contact with and (suspected) exposure to COVID-19
CPT/HCPCS: 36415; 87651; 86308; 87636; 99283; 96372; J1100

== ENCOUNTER → 2023-05-11 | Outpatient (CLI) | payer OTHER ==
--- NOTE | 2023-05-11 21:14 | MR ---
EXAMINATION TYPE: MR cspine/tspine wo/w con DATE OF EXAM: 05/11/2023 8:39 PM CLINICAL INDICATION:Male, 22 years old with history of R29.2 ABNORMAL REFLEX; PHH, Fasciculation, Mus shara spasms, Possible MS from Brain MRI done at another facility COMPARISON: None TECHNIQUE: Multi planar, multi sequence imaging was performed utilizing: T1-weighted, T2-weighted, a nd turbo inversion recovery imaging of the cervical and thoracic spine. MR contrast: IV Contrast: 9 cc Gadavist, None. FINDINGS: CERVICAL: Alignment: The cervical vertebral bodies have preserved heights. Alignment is within normal limits gi radha patient positioning. Bones: Bone signal is within normal limits. No abnormal bone marrow edema on inversion recovery seque nces. Cord: The spinal cord is unremarkable with regards to their signal intensity and morphology. No abnor mal postcontrast enhancement. Discs: Intervertebral disc signal is maintained. C2-C3: No significant disc pathology. The spinal canal is patent. No neural foraminal stenosis. C3-C4: No significant disc pathology. The spinal canal is patent. No neural foraminal stenosis. C4-C5: No significant disc pathology. The spinal canal is patent. Bilateral facet and uncovertebral joint arthropathy are present with mild left neural foraminal stenosis. The right neural foramen is p atent. C5-C6: No significant disc pathology. The spinal canal is patent. Bilateral facet and uncovertebral joint arthropathy are present with mild bilateral neural foraminal stenosis. C6-C7: No significant disc pathology. The spinal canal is patent. No neural foraminal stenosis. C7-T1: No significant disc pathology. The spinal canal is patent. No neural foraminal stenosis. THORACIC: No evidence significant spinal canal or neural foraminal stenosis. Spinal cord is within no rmal limits. No abnormal postcontrast enhancement. Other: None. IMPRESSION: 1. No evidence for active demyelination, spinal cord signal is maintained. 2. No definitive evidence of disc herniation or significant spinal canal stenosis. 3. Minimal disc degeneration with associated osteoarthritic changes.
== END ==
LOC: RADMRIMAIN 18:53
PROVIDERS: ATTEND Family Medicine
DX: M47.812 Spondylosis without myelopathy or radiculopathy, cervical region (principal); M50.30 Other cervical disc degeneration, unspecified cervical region; R29.2 Abnormal reflex; R25.3 Fasciculation; R90.82 White matter disease, unspecified
CPT/HCPCS: 72156; 72157; A9585

== ENCOUNTER → 2023-07-19 | Outpatient (CLI) | payer OTHER ==
--- NOTE | 2023-07-19 16:24 | CT ---
EXAMINATION TYPE: CT sinus wo con DATE OF EXAM: 07/19/2023 COMPARISON: None HISTORY: Headache and sinus pain x 1.5-[address] DLP: 483.[address] of the paranasal sinuses was performed in the axial and coronal planes. Bone and soft tissue settings are submitted. The paranasal sinuses demonstrate normal aeration and development. Probable mucous retention cyst at the base of the right maxillary sinus. The maxillary sinuses are ot herwise well aerated. The osteal meatal units are patent bilaterally. Nasal septal deviation from right to left. No bony destructive changes are seen within the field of view. IMPRESSION: Probable mucous retention cyst at the base of the right maxillary sinus. Nasal septal deviation from right to left.
== END | disposition home or self-care (01) ==
LOC: RADCTMAIN 15:51
PROVIDERS: ATTEND Family Medicine
DX: J34.2 Deviated nasal septum (principal); J32.2 Chronic ethmoidal sinusitis
CPT/HCPCS: 70486

== ENCOUNTER 2023-08-15 14:30 | Emergency (ER) | payer OTHER ==
[2023-08-15 15:16] VITALS: RESP 18
--- NOTE | 2023-08-15 15:22 | ED ---
General Adult HPI - General Chief complaint: Dizziness Stated complaint: Fatigue Source: patient, RN notes reviewed Mode of arrival: ambulatory Limitations: no limitations - History of Present Illness Initial comments: 22 year old male presents to the emergency department for evaluation of lightheadedness. Patient states that this has been going on for around 2 days. He also reports that he has been more tired than usual. He reports that he is on doxycycline and amoxicillin for recurrent sinusitis. Denies fever, nausea, vomiting. - Related Data Home Medications Medication Instructions Recorded Confirmed Omeprazole 20 mg PO BID 08/04/22 02/19/23 Cetirizine HCl/Pseudoephedrine 2 tab PO Q12H 02/19/23 02/19/23 [Zyrtec-D ER 5 mg-120 mg Tablet] busPIRone HCl [Buspar] 10 mg PO DAILY@1300 02/19/23 02/19/23 Previous Rx's Medication Instructions Recorded lidocaine HCL [Lidocaine HCl 10 ml PO Q4-6H PRN #100 ml 05/09/23 Viscous] Allergies Allergy/AdvReac Type Severity Reaction Status Date / Time No Known Allergies Allergy Verified 08/15/23 14:39 Review of Systems ROS Statement: Those systems with pertinent positive or pertinent negative responses have been documented in the HPI. ROS Other: All systems not noted in ROS Statement are negative. Past Medical History Past Medical History: GERD/Reflux History of Any Multi-Drug Resistant Organisms: None Reported Past Surgical History: No Surgical Hx Reported Additional Past Surgical History / Comment(s): Pyloric stenosis surgically repaired. Past Psychological History: Anxiety, Depression Smoking Status: Never smoker Past Alcohol Use History: None Reported Past Drug Use History: None Reported General Exam - General Exam Comments Initial Comments: Visual Physical Exam Vital signs reviewed General: Well-appearing, nontoxic, no acute distress. Head: Normocephalic, atraumatic Eyes: PERRLA, EOMI ENT: Airway patent Chest: Nonlabored breathing Skin: No visual rash, normal skin tone Neuro: Alert and oriented 3 Musculoskeletal: No gross abnormalities Limitations: no limitations General appearance: alert, in no apparent distress Head exam: Present: atraumatic, normocephalic, normal inspection Eye exam: Present: normal appearance, PERRL, EOMI. Absent: scleral icterus, conjunctival injection, periorbital swelling ENT exam: Present: normal exam, mucous membranes moist, TM's normal bilaterally, normal external ear exam Neck exam: Present: normal inspection. Absent: tenderness, meningismus, lymphadenopathy Respiratory exam: Present: normal lung sounds bilaterally. Absent: respiratory distress, wheezes, rales, rhonchi, stridor Cardiovascular Exam: Present: regular rate, normal rhythm, normal heart sounds. Absent: systolic murmur, diastolic murmur, rubs, gallop, clicks GI/Abdominal exam: Present: soft. Absent: distended, tenderness, guarding, rebound, rigid Extremities exam: Present: normal inspection, full ROM, normal capillary refill. Absent: tenderness, pedal edema, joint swelling, calf tenderness Neurological exam: Present: alert, oriented X3 Psychiatric exam: Present: normal affect, normal mood Skin exam: Present: warm, dry, intact, normal color. Absent: rash Course Vital Signs 08/15/23 08/15/23 08/15/23 14:37 17:15 18:06 Temperature 98.6 F 98.5 F Pulse Rate 73 Pulse Rate [ 92 Right Sitting] Pulse Rate [ 73 Right Standing] Pulse Rate [ 77 Right Supine Pulse Oximetery ] Respiratory 18 Rate Blood Pressure 137/88 Blood Pressure 136/84 [Left Arm Sitting] Blood Pressure 160/90 [Left Arm Standing] Blood Pressure 146/85 [Left Arm Supine] O2 Sat by Pulse 99 100 Oximetry Medical Decision Making - Medical Decision Making Quick note preformed and electronically signed by Ashlee Whitman PA-C Was pt. sent in by a medical professional or institution (MISHA Connor, [employer] CHECK[employer], urgent care, hospital, or retirement...) When possible be specific @ -No Did you speak to anyone other than the patient for history (EMS, parent, family, police, friend...)? What history was obtained from this source @ -No Did you review nursing and triage notes (agree or disagree)? Why? @ -I reviewed and agree with nursing and triage notes Were old charts reviewed (outside hosp., previous admission, EMS record, old EKG, old radiological studies, urgent care reports/EKG's, retirement records)? Report findings @ -No old charts were reviewed Differential Diagnosis (chest pain, altered mental status, abdominal pain women, abdominal pain men, vaginal bleeding, weakness, fever, dyspnea, syncope, headache, dizziness, GI bleed, back pain, seizure, CVA, palpatations, mental health, musculoskeletal)? @ -Differential Dizziness: Benign paroxysmal positional Vertigo, Menieres disease, otitis media, acoustic neuroma, vertebrobasilar insufficiency, cerebellar stroke, encephalitis, hypovolemic, arrhythmia, coronary artery syndrome, anemia, this is not meant to be an all-inclusive list EKG interpreted by me (3pts min.). @ -EKG at 1528 shows sinus rhythm rate 82, RI 148, QRS 97, QTQTc [id number] X-rays interpreted by me (1pt min.). @ -None done CT interpreted by me (1pt min.). @ -None done U/S interpreted by me (1pt. min.). @ -None done What testing was considered but not performed or refused? (CT, X-rays, U/S, labs)? Why? @ -None What meds were considered but not given or refused? Why? @ -None Did you discuss the management of the patient with other professionals (professionals i.e. , PA, [employer] CHECKER, lab, RT, psych nurse, high school social studies tutor, dipper fish, teacher, uniform patrol police officer, ed case manager)? Give summary @ -No Was smoking cessation discussed for >3mins.? @ -No Was critical care preformed (if so, how long)? @ -No Were there social determinants of health that impacted care today? How? (Homelessness, low income, unemployed, alcoholism, drug addiction, transportation, low edu. Level, literacy, decrease access to med. care, nursing home, rehab)? @ -No Was there de-escalation of care discussed even if they declined (Discuss DNR or withdrawal of care, Hospice)? DNR status @ -No What co-morbidities impacted this encounter? (DM, HTN, Smoking, COPD, CAD, Cancer, CVA, ARF, Chemo, Hep., AIDS, mental health diagnosis, sleep apnea, morbid obesity)? @ -None Was patient admitted / discharged? Hospital course, mention meds given and route, prescriptions, significant lab abnormalities, going to OR and other pertinent info. @ -Discharged. Patient presented to the emergency department for evaluation of fatigue, lightheadedness. Symptoms have been going on for 2 days. He has experienced similar in the past. Laboratory studies obtained including CBC, CMP which were unremarkable. Negative for COVID, influenza, RSV. Provided fluids in the emergency department. He is feeling better after this. Discussed resul ts with patient. He will be discharged home. Patient understanding agreeable with discharge plan. Patient stable at time of discharge. Case discussed with Dr. Smith. Undiagnosed new problem with uncertain prognosis? @ -No Drug Therapy requiring intensive monitoring for toxicity (Heparin, Nitro, Insulin, Cardizem)? @ -No Were any procedures done? @ -No Diagnosis/symptom? @ -Fatigue, lightheadedness Acute, or Chronic, or Acute on Chronic? @ -Acute Uncomplicated (without systemic symptoms) or Complicated (systemic symptoms)? @ -Uncomplicated Side effects of treatment? @ -No Exacerbation, Progression, or Severe Exacerbation? @ -No Poses a threat to life or bodily function? How? (Chest pain, [place], [place], pneumonia, PE, COPD, DKA, ARF, appy, cholecystitis, CVA, Diverticulitis, Homicidal, Suicidal, threat to staff... and all critical care pts) @ -No - Lab Data Result diagrams: 08/15/23 15:42 08/15/23 15:35 Lab Results 08/15/23 08/15/23 08/15/23 Range/Units 15:35 15:35 15:42 WBC 8.1 (3.8-10.6) k/uL RBC 5.11 (4.30-5.90) m/uL Hgb 14.7 (13.0-17.5) gm/dL Hct 43.5 (39.0-53.0) % MCV 85.0 (80.0-100.0) fL MCH 28.8 (25.0-35.0) pg MCHC 33.9 (31.0-37.0) g/dL RDW 13.2 (11.5-15.5) % Plt Count 326 (150-450) k/uL MPV 7.6 Neutrophils % 55 % Lymphocytes % 33 % Monocytes % 6 % Eosinophils % 3 % Basophils % 1 % Neutrophils # 4.5 (1.3-7.7) k/uL Lymphocytes # 2.7 (1.0-4.8) k/uL Monocytes # 0.5 (0-1.0) k/uL Eosinophils # 0.3 (0-0.7) k/uL Basophils # 0.1 (0-0.2) k/uL Sodium 143 (137-145) mmol/L Potassium 4.4 (3.5-5.1) mmol/L Chloride 108 H (98-107) mmol/L Carbon Dioxide 24 (22-30) mmol/L Anion Gap 11 mmol/L BUN 14 (9-20) mg/dL Creatinine 0.94 (0.66-1.25) mg/dL Est GFR (CKD-EPI)AfAm >90 (>60 ml/min/1.73 sqM) Est GFR (CKD-EPI)NonAf >90 (>60 ml/min/1.73 sqM) Glucose 89 (74-99) mg/dL Calcium 9.9 (8.4-10.2) mg/dL Total Bilirubin 1.0 (0.2-1.3) mg/dL AST 32 (17-59) U/L ALT 39 (4-49) U/L Alkaline Phosphatase 73 (38-126) U/L Total Protein 7.6 (6.3-8.2) g/dL Albumin 4.6 (3.5-5.0) g/dL Influenza Type A (PCR) Not Detected (Not Detectd) Influenza Type B (PCR) Not Detected (Not Detectd) RSV (PCR) Not Detected (Not Detectd) SARS-CoV-2 (PCR) Not Detected (Not Detectd) Disposition Clinical Impression: Lightheadedness, Chronic sinusitis Disposition: HOME SELF-CARE Condition: Stable Instructions (If sedation given, give patient instructions): Dizziness (ED) Additional Instructions: Please follow up with your primary care provider. Return to the emergency department for new or worsening symptoms. Is patient prescribed a controlled substance at d/c from ED?: No Referrals: Mandeep Chaves MD [Primary Care Provider] - 1-2 days
[2023-08-15 15:51] LABS: Basophils # (A) 0.1 k/uL (0-0.2); Basophils % (A) 1 %; Eosinophils # (A) 0.3 k/uL (0-0.7); Eosinophils % (A) 3 %; HCT 43.5 % (39.0-53.0); HGB 14.7 gm/dL (13.0-17.5); Lymphocytes # (A) 2.7 k/uL (1.0-4.8); Lymphocytes % (A) 33 %; MCH 28.8 pg (25.0-35.0); MCHC 33.9 g/dL (31.0-37.0); Mean Platelet Volume 7.6; Monocytes # (A) 0.5 k/uL (0-1.0); Monocytes % (A) 6 %; Neutrophils # (A) 4.5 k/uL (1.3-7.7); Neutrophils % (A) 55 %; Platelet Count 326 k/uL (150-450); RBC 5.11 m/uL (4.30-5.90); RDW 13.2 % (11.5-15.5); WBC 8.1 k/uL (3.8-10.6)
[2023-08-15 16:02] LABS: ALT 39 U/L (4-49); AST 32 U/L (17-59); African American GFR (CKD) >90 (>60 ml/min/1.73 sqM); Albumin 4.6 g/dL (3.5-5.0); Alkaline Phosphatase 73 U/L (38-126); Anion Gap 11 mmol/L; Blood Urea Nitrogen 14 mg/dL (9-20); Calcium 9.9 mg/dL (8.4-10.2); Carbon Dioxide 24 mmol/L (22-30); Chloride 108 mmol/L (98-107); Glucose 89 mg/dL (74-99); Non-African American GFR(CKD) >90 (>60 ml/min/1.73 sqM); Potassium 4.4 mmol/L (3.5-5.1); Sodium 143 mmol/L (137-145); Total Protein 7.6 g/dL (6.3-8.2)
[2023-08-15] MEDS: SODIUM CHLORIDE 0.9% 1,000 ML IV ONE (16:04)
[2023-08-15] MEDS: SODIUM CHLORIDE 0.9% 500 ML 500 ML IV ONE (16:06)
[2023-08-15 17:20] VITALS: BP 146/85; PULSE 77
[2023-08-15 18:41] VITALS: TEMP 98.5
== END 2023-08-15 18:08 | disposition home or self-care (01) ==
LOC: EC 14:30
DX: J32.9 Chronic sinusitis, unspecified (principal); R42 Dizziness and giddiness; Z11.52 Encounter for screening for COVID-19
CPT/HCPCS: 36415; 80053; 85025; 87636; 93005; 96360; 99284

== ENCOUNTER → 2023-08-26 | Outpatient (CLI) | payer OTHER ==
--- NOTE | 2023-09-21 12:40 | EM ---
EVENT MONITOR This is a 10-day event monitor. INDICATION: Tachycardia. FINDINGS: This event monitor shows sinus rhythm with episodes of sinus tachycardia and sinus bradycardia. Slowest heart rate was 50 beats per minute. The fastest heart rate was 139 beats per minute. CONCLUSIONS: As above. MMODL / IJN: [id number] /
== END | disposition home or self-care (01) ==
LOC: RADECHMAIN 07:12
PROVIDERS: ATTEND Family Medicine
DX: R00.0 Tachycardia, unspecified (principal)
CPT/HCPCS: 93270

== ENCOUNTER → 2023-10-05 | Outpatient (CLI) | payer OTHER ==
[2023-10-05 14:26] LABS: HCT 46.4 % (39.6-50.0); HGB 15.4 g/dL (13.0-17.0); MCH 28.4 pg (27.0-32.0); MCHC 33.2 g/dL (32.0-37.0); MCV 85.5 FL (80.0-97.0); NRBC Per 100 WBC 0 X 10*3/uL (0.00-0.01); Platelet Count 275 X 10*3/uL (140-440); RBC 5.43 X 10*6/uL (4.40-5.60); WBC 6.76 X 10*3/uL (4.50-10.00)
[2023-10-05 15:04] LABS: Reticulocyte % 1.21 % (0.10-1.80)
[2023-10-05 19:13] LABS: % Iron Saturation 9.44 (15.00-50.00); Ferritin 24.2 ng/mL (22.0-322.0)
[2023-10-05 20:19] LABS: Gliadin AB IgA, Deaminated Negative (Negative); Gliadin AB IgA, Unit <0.5 U/mL; Gliadin AB IgG, Deaminated Negative (Negative); Gliadin AB IgG, Unit <0.4 U/mL
[2023-10-06 11:03] LABS: Zinc, Serum 112 ug/dL (60-130)
== END | disposition home or self-care (01) ==
LOC: LABWHC1 12:09
PROVIDERS: ATTEND Family Medicine
DX: R53.83 Other fatigue (principal)
CPT/HCPCS: 36415; 82525; 82607; 82728; 82746; 83516; 83540; 83550; 84207; 84630; 85027; 85045

== ENCOUNTER 2023-10-16 18:15 | Emergency (ER) | payer OTHER ==
[2023-10-16 18:38] VITALS: RESP 18; TEMP 98.1
--- NOTE | 2023-10-16 19:01 | ED ---
General Adult HPI - General Chief complaint: Recheck/Abnormal Lab/Rx Stated complaint: lethargy, lightheaded Time Seen by Provider: 10/16/23 18:50 Source: patient Mode of arrival: ambulatory Limitations: no limitations - History of Present Illness Initial comments: Dictation was produced using [employer] dictation software. please excuse any grammatical, word or spelling errors. Chief Complaint: 22-year-old male presents with generalized weakness History of Present Illness: Patient 22-year-old male presents emergency department generalized weakness. Patient states he has been feeling weak for approximately 3 weeks. Started to feel little lightheaded the last 2 days. Patient denies any other complaints. He had a genetic test performed showing t hat he might have possible celiac's disease. The ROS documented in this emergency department record has been reviewed and confirmed by me. Those systems with pertinent positive or negative responses have been documented in the HPI. All other systems are other negative and/or noncontributory. - Related Data Home Medications Medication Instructions Recorded Confirmed Omeprazole 20 mg PO BID 08/04/22 02/19/23 Cetirizine HCl/Pseudoephedrine 2 tab PO Q12H 02/19/23 02/19/23 [Zyrtec-D ER 5 mg-120 mg Tablet] busPIRone HCl [Buspar] 10 mg PO DAILY@1300 02/19/23 02/19/23 Previous Rx's Medication Instructions Recorded lidocaine HCL [Lidocaine HCl 10 ml PO Q4-6H PRN #100 ml 05/09/23 Viscous] Allergies Allergy/AdvReac Type Severity Reaction Status Date / Time No Known Allergies Allergy Verified 10/16/23 18:37 Review of Systems ROS Statement: Those systems with pertinent positive or pertinent negative responses have been documented in the HPI. ROS Other: All systems not noted in ROS Statement are negative. Past Medical History Past Medical History: GERD/Reflux History of Any Multi-Drug Resistant Organisms: None Reported Past Surgical History: No Surgical Hx Reported Additional Past Surgical History / Comment(s): Pyloric stenosis surgically repaired. Past Psychological History: Anxiety, Depression Smoking Status: Never smoker Past Alcohol Use History: None Reported Past Drug Use History: None Reported General Exam - General Exam Comments Initial Comments: PHYSICAL EXAM: General Impression: Alert and oriented x3, not in acute distress HEENT: Normocephalic atraumatic, extra-ocular movements intact, pupils equal and reactive to light bilaterally, mucous membranes moist. Cardiovascular: Heart regular rate and rhythm Chest: Able to complete full sentences, no retractions, no tachypnea Abdomen: abdomen soft, non-tender, non-distended, no organomegaly Musculoskeletal: Pulses present and equal in all extremities, no peripheral edema Motor: no focal deficits noted Neurological: CN II-XII grossly intact, no focal motor or sensory deficits noted Skin: Intact with no visualized rashes Psych: Normal affect and mood Limitations: no limitations Course Vital Signs 10/16/23 18:34 Temperature 98.1 F Pulse Rate 88 Respiratory 18 Rate Blood Pressure 142/78 O2 Sat by Pulse 100 Oximetry Medical Decision Making - Medical Decision Making Was pt. sent in by a medical professional or institution (, PA, J[employer] CORNER BRUSHING MACHINE OPERATOR, urgent care, hospital, or shelter...) When possible be specific @ -No Did you speak to anyone other than the patient for history (EMS, parent, family, police, friend...)? What history was obtained from this source @ -No Did you review nursing and triage notes (agree or disagree)? Why? @ -I reviewed and agree with nursing and triage notes Were old charts reviewed (outside hosp., previous admission, EMS record, old EKG, old radiological studies, urgent care reports/EKG's, shelter records)? Report findings @ -No old charts were reviewed Differential Diagnosis (chest pain, altered mental status, abdominal pain women, abdominal pain men, vaginal bleeding, musculoskeletal, weakness, fever, dyspnea, syncope, headache, dizziness, GI bleed, back pain, seizure, CVA, palpatations, mental health)? @ -Differential Weakness: Hypoglycemia, shock, sepsis, hyponatremia, anemia, infection, [place], ETOH, adverse medicine reaction, overdose, stroke, this is not meant to be an all-inclusive list. EKG interpreted by me (3pts min.). @ -None done X-rays interpreted by me (1pt min.). @ -None done CT interpreted by me (1pt min.). @ -None done U/S interpreted by me (1pt. min.). @ -None done What testing was considered but not performed or refused? (CT, X-rays, U/S, labs)? Why? @ -None What meds were considered but not given or refused? Why? @ -None Was smoking cessation discussed for >3mins.? @ -No Were there social determinants of health that impacted care today? How? (Homelessness, low income, unemployed, alcoholism, drug addiction, transportation, low edu. Level, literacy, decrease access to med. care, detention, rehab)? @ -No Was there de-escalation of care discussed even if they declined (Discuss DNR or withdrawal of care, Hospice)? DNR status @ -No What co-morbidities impacted this encounter? (DM, HTN, Smoking, COPD, CAD, Cancer, CVA, ARF, Chemo, Hep., AIDS, mental health diagnosis, sleep apnea, morbid obesity)? @ -None Was patient admitted / discharged? Hospital course, mention meds given and route, prescriptions, significant lab abnormalities, going to OR and other pertinent info. @ -22-year-old male with chief complaint of weakness. Patient well-appearing. He is afraid he has celiac's disease and that it is why he is feeling so weak. Vital signs stable. Physical examination is benign. Patient is well-appearing. Patient discharged advised follow-up with primary care doctor. Labs are unremarkable. Did you discuss the management of the patient with other professionals (professionals i.e. , PA, JEW[employer] CORNER BRUSHING MACHINE OPERATOR, lab, RT, psych nurse, manager social work, edge trimmer, teacher, chief mechanical officer, case management associate)? Give summary @ -No Was critical care preformed (if so, how long)? @ -No Undiagnosed new problem with uncertain prognosis? @ -No Drug Therapy requiring intensive monitoring for toxicity (Heparin, Nitro, Ins ulin, Cardizem)? @ -No Were any procedures done? @ -No Diagnosis/symptom? Acute, or Chronic, or Acute on Chronic? Uncomplicated (without systemic symptoms) or Complicated (systemic symptoms)? @ -Weakness Side effects of treatment? @ -No Exacerbation, Progression, or Severe Exacerbation? @ -No Poses a threat to life or bodily function? How? (Chest pain, USA, [place], pneumonia, PE, COPD, DKA, ARF, appy, cholecystitis, CVA, Diverticulitis, Homicidal, Suicidal, threat to staff... and all critical care pts) @ -No - Lab Data Result diagrams: 10/16/23 19:08 10/16/23 19:08 Lab Results 10/16/23 10/16/23 Range/Units 19:08 19:08 WBC 7.5 (3.8-10.6) k/uL RBC 5.08 (4.30-5.90) m/uL Hgb 14.3 (13.0-17.5) gm/dL Hct 44.2 (39.0-53.0) % MCV 87.0 (80.0-100.0) fL MCH 28.2 (25.0-35.0) pg MCHC 32.5 (31.0-37.0) g/dL RDW 13.0 (11.5-15.5) % Plt Count 263 (150-450) k/uL MPV 7.7 Neutrophils % 50 % Lymphocytes % 36 % Monocytes % 7 % Eosinophils % 4 % Basophils % 1 % Neutrophils # 3.8 (1.3-7.7) k/uL Lymphocytes # 2.7 (1.0-4.8) k/uL Monocytes # 0.5 (0-1.0) k/uL Eosinophils # 0.3 (0-0.7) k/uL Basophils # 0.1 (0-0.2) k/uL Sodium 141 (137-145) mmol/L Potassium 3.8 (3.5-5.1) mmol/L Chloride 106 (98-107) mmol/L Carbon Dioxide 28 (22-30) mmol/L Anion Gap 7 mmol/L BUN 11 (9-20) mg/dL Creatinine 0.94 (0.66-1.25) mg/dL Est GFR (CKD-EPI)AfAm >90 (>60 ml/min/1.73 sqM) Est GFR (CKD-EPI)NonAf >90 (>60 ml/min/1.73 sqM) Glucose 108 H (74-99) mg/dL Calcium 9.7 (8.4-10.2) mg/dL Disposition Clinical Impression: Weakness Disposition: HOME SELF-CARE Condition: Good Instructions (If sedation given, give patient instructions): Weakness (ED) Is patient prescribed a controlled substance at d/c from ED?: No Referrals: Mandeep Chaves MD [Primary Care Provider] - 1-2 days Time of Disposition: 19:30
[2023-10-16 19:15] LABS: Basophils # (A) 0.1 k/uL (0-0.2); Basophils % (A) 1 %; Eosinophils # (A) 0.3 k/uL (0-0.7); Eosinophils % (A) 4 %; HCT 44.2 % (39.0-53.0); HGB 14.3 gm/dL (13.0-17.5); Lymphocytes # (A) 2.7 k/uL (1.0-4.8); Lymphocytes % (A) 36 %; MCH 28.2 pg (25.0-35.0); MCHC 32.5 g/dL (31.0-37.0); Mean Platelet Volume 7.7; Monocytes # (A) 0.5 k/uL (0-1.0); Monocytes % (A) 7 %; Neutrophils # (A) 3.8 k/uL (1.3-7.7); Neutrophils % (A) 50 %; Platelet Count 263 k/uL (150-450); RBC 5.08 m/uL (4.30-5.90); WBC 7.5 k/uL (3.8-10.6)
[2023-10-16 19:24] LABS: African American GFR (CKD) >90 (>60 ml/min/1.73 sqM); Anion Gap 7 mmol/L; Blood Urea Nitrogen 11 mg/dL (9-20); Calcium 9.7 mg/dL (8.4-10.2); Carbon Dioxide 28 mmol/L (22-30); Chloride 106 mmol/L (98-107); Glucose 108 mg/dL (74-99); Non-African American GFR(CKD) >90 (>60 ml/min/1.73 sqM); Potassium 3.8 mmol/L (3.5-5.1); Sodium 141 mmol/L (137-145)
[2023-10-16 19:39] VITALS: BP 119/75; PULSE 91
== END 2023-10-16 19:38 | disposition home or self-care (01) ==
LOC: EC 18:15
DX: R53.1 Weakness (principal)
CPT/HCPCS: 36415; 80048; 85025; 99284

== ENCOUNTER → 2023-10-22 | Outpatient (CLI) | payer OTHER ==
--- NOTE | 2023-10-23 19:04 | MR ---
EXAMINATION TYPE: MR cspine/tspine wo/w con DATE OF EXAM: 10/22/2023 10:14 PM CLINICAL INDICATION:Male, 22 years old with history of R25.1 MUSCLE TREMOR R90.82 WHITE MATTER; PHH, White matter abnormality on MRI of brain, muscle tremor, abnormal reflexes of lower extremity, muscle twitching, neck stiffness and tightness COMPARISON: None TECHNIQUE: Multi planar, multi sequence imaging was performed utilizing: T1-weighted, T2-weighted, a nd turbo inversion recovery imaging of the cervical and thoracic spine. MR contrast: IV Contrast: 9 cc Gadavist, None. FINDINGS: CERVICAL: Alignment: The cervical vertebral bodies have preserved heights. Alignment is within normal limits gi radha patient positioning. Bones: Bone signal is within normal limits. No abnormal bone marrow edema on inversion recovery seque nces. Cord: The spinal cord is unremarkable with regards to their signal intensity and morphology. Discs: Intervertebral disc signal is maintained. C2-C3: No significant disc pathology. The spinal canal is patent. No neural foraminal stenosis. C3-C4: No significant disc pathology. The spinal canal is patent. No neural foraminal stenosis. C4-C5: No significant disc pathology. The spinal canal is patent. No neural foraminal stenosis. C5-C6: No significant disc pathology. The spinal canal is patent. No neural foraminal stenosis. C6-C7: No significant disc pathology. The spinal canal is patent. No neural foraminal stenosis. C7-T1: No significant disc pathology. The spinal canal is patent. No neural foraminal stenosis. THORACIC: No evidence significant spinal canal or neural foraminal stenosis. Spinal cord is within no rmal limits no abnormal postcontrast enhancement. Other: None. IMPRESSION: Motion limited exam. 1. Spinal cord signal is maintained. No abnormal postcontrast enhancement. 2. No definitive evidence of disc herniation or significant spinal canal stenosis. 3. Minimal disc degeneration with associated osteoarthritic changes.
== END | disposition home or self-care (01) ==
LOC: RADMRIMAIN 20:45
PROVIDERS: ATTEND Psychiatry & Neurology Neurology
DX: R25.1 Tremor, unspecified (principal); R90.82 White matter disease, unspecified; R29.2 Abnormal reflex; R25.3 Fasciculation; M50.30 Other cervical disc degeneration, unspecified cervical region
CPT/HCPCS: 72156; 72157; A9585

== ENCOUNTER 2024-01-14 18:51 | Emergency (ER) | payer OTHER ==
--- NOTE | 2024-01-14 19:22 | ED ---
General Adult HPI - General Chief complaint: Upper Respiratory Infection Stated complaint: Fever Time Seen by Provider: 01/14/24 19:05 Source: patient, RN notes reviewed Mode of arrival: ambulatory Limitations: no limitations - History of Present Illness Initial comments: 23-year-old male with history of chronic sinusitis presents emergency department chief complaint of upper respiratory infection symptoms and fever. Patient states that over the past 3 to 4 days he has been experiencing a intermittent fever, cough, congestion. Patient was evaluated yesterday at outside facility where he was discharged home in stable condition. Patient was evaluated this morning by his primary care provider where he was discharged home with Augmentin for probable sinus infection. Patient states that he was concerned that he had a elevated temperature today. Took Tylenol, 1000 mg, at 1800 this evening. - Related Data Home Medications Medication Instructions Recorded Confirmed Omeprazole 20 mg PO BID 08/04/22 02/19/23 Cetirizine HCl/Pseudoephedrine 2 tab PO Q12H 02/19/23 02/19/23 [Zyrtec-D ER 5 mg-120 mg Tablet] busPIRone HCl [Buspar] 10 mg PO DAILY@1300 02/19/23 02/19/23 Previous Rx's Medication Instructions Recorded lidocaine HCL [Lidocaine HCl 10 ml PO Q4-6H PRN #100 ml 05/09/23 Viscous] Allergies Allergy/AdvReac Type Severity Reaction Status Date / Time No Known Allergies Allergy Verified 10/16/23 18:37 Review of Systems ROS Statement: Those systems with pertinent positive or pertinent negative responses have been documented in the HPI. ROS Other: All systems not noted in ROS Statement are negative. Past Medical History Past Medical History: GERD/Reflux Additional Past Medical History / Comment(s): chronic sinusitis History of Any Multi-Drug Resistant Organisms: None Reported Past Surgical History: No Surgical Hx Reported Additional Past Surgical History / Comment(s): Pyloric stenosis surgically repaired. Past Psychological History: Anxiety, Depression Smoking Status: Former smoker Past Alcohol Use History: None Reported Past Drug Use History: None Reported General Exam Limitations: no limitations General appearance: alert, in no apparent distress Eye exam: Present: normal appearance, PERRL, EOMI. Absent: scleral icterus, conjunctival injection, periorbital swelling ENT exam: Present: normal exam, mucous membranes moist Neck exam: Present: normal inspection, other (mild posterior oropharynx erythema). Absent: tenderness, meningismus, lymphadenopathy Respiratory exam: Present: normal lung sounds bilaterally. Absent: respiratory distress, wheezes, rales, rhonchi, stridor Cardiovascular Exam: Present: regular rate, normal rhythm, normal heart sounds. Absent: systolic murmur, diastolic murmur, rubs, gallop, clicks GI/Abdominal exam: Present: soft, normal bowel sounds. Absent: distended, tenderness, guarding, rebound, rigid Extremities exam: Present: normal inspection, full ROM, normal capillary refill. Absent: tenderness, pedal edema, joint swelling, calf tenderness Skin exam: Present: warm, dry, intact, normal color. Absent: rash Course Vital Signs 01/14/24 01/14/24 01/14/24 18:56 20:24 22:02 Temperature 102.7 F H 101 F H 98.9 F Pulse Rate 140 H 122 H 118 H Respiratory 20 18 20 Rate Blood Pressure 116/77 120/68 120/73 O2 Sat by Pulse 96 100 100 Oximetry Medical Decision Making - Medical Decision Making Was pt. sent in by a medical professional or institution (Dr. PA, DIRECTOR PRESALES, urgent care, hospital, or usp...) When possible be specific @ -No Did you speak to anyone other than the patient for history (EMS, parent, family, police, friend...)? What history was obtained from this source @ -No Did you review nursing and triage notes (agree or disagree)? Why? @ -I reviewed and agree with nursing and triage notes Were old charts reviewed (outside hosp., previous admission, EMS record, old EKG, old radiological studies, urgent care reports/EKG's, usp records)? Report findings @ -No old charts were reviewed Differential Diagnosis (chest pain, altered mental status, abdominal pain women, abdominal pain men, vaginal bleeding, weakness, fever, dyspnea, syncope, he adache, dizziness, GI bleed, back pain, seizure, CVA, palpatations, mental health, musculoskeletal)? @ -COVID 19, RSV, influenza, pneumonia, acute bronchitis, URI, this list is not all inclusive EKG interpreted by me (3pts min.). @ -None X-rays interpreted by me (1pt min.). @ -None done CT interpreted by me (1pt min.). @ -None done U/S interpreted by me (1pt. min.). @ -None done What testing was considered but not performed or refused? (CT, X-rays, U/S, labs)? Why? @ -X-ray of the chest was considered but deferred at this time. Patient physical examination reveals no adventitious sounds. There is minimal clinical concern for pulmonary pathology at this time. Patient is agree with deferring x-ray imaging at this time as well. What meds were considered but not given or refused? Why? @ -None Did you discuss the management of the patient with other professionals (professionals i.e. , PA, DIRECTOR PRESALES, lab, RT, psych nurse, social media director, manager cardiac, teacher, banking officer, case loader operator)? Give summary @ -No Was smoking cessation discussed for >3mins.? @ -No Was critical care preformed (if so, how long)? @ -No Were there social determinants of health that impacted care today? How? (Homelessness, low income, unemployed, alcoholism, drug addiction, transportation, low edu. Level, literacy, decrease access to med. care, longterm, rehab)? @ -No Was there de-escalation of care discussed even if they declined (Discuss DNR or withdrawal of care, Hospice)? DNR status @ -No What co-morbidities impacted this encounter? (DM, HTN, Smoking, COPD, CAD, Cancer, CVA, ARF, Chemo, Hep., AIDS, mental health diagnosis, sleep apnea, morbid obesity)? @ -None Was patient admitted / discharged? Hospital course, mention meds given and route, prescriptions, significant lab abnormalities, going to OR and other p ertinent info. @ -Discharge. 23-year-old male with upper respiratory infection symptoms and fever. Patient is noted to be tachycardic and febrile on arrival. He is provided with dose of Profen and symptomatically treated with IV fluids pending laboratory results. Patient is negative for COVID, flu, RSV. Recheck of temperature reveals that the temperature is downtrending. Patient has been pre scribed antibiotics outpatient by his primary care provider and recommend that he continue these outpatient and continue Tylenol Motrin at home for symptomatic and fever relief. All questions answered at bedside and strict return. Discussed with the patient he is verbalized understanding. Case discussed with Dr. Martin Undiagnosed new problem with uncertain prognosis? @ -No Drug Therapy requiring intensive monitoring for toxicity (Heparin, Nitro, Insulin, Cardizem)? @ -No Were any procedures done? @ -No Diagnosis/symptom? @ -fever, upper respiratory infection Acute, or Chronic, or Acute on Chronic? @ -Acute Uncomplicated (without systemic symptoms) or Complicated (systemic symptoms)? @ -uncomplicated Side effects of treatment? @ -No Exacerbation, Progression, or Severe Exacerbation? @ -No Poses a threat to life or bodily function? How? (Chest pain, [place], NV, pneumonia, PE, COPD, DKA, ARF, appy, cholecystitis, CVA, Diverticulitis, Homicidal, Suicidal, threat to staff... and all critical care pts) @ -No - Lab Data Lab Results 01/14/24 Range/Units 19:33 Influenza Type A (PCR) Not Detected (Not Detectd) Influenza Type B (PCR) Not Detected (Not Detectd) RSV (PCR) Not Detected (Not Detectd) SARS-CoV-2 (PCR) Not Detected (Not Detectd) Disposition Clinical Impression: Sinusitis, Fever Disposition: HOME SELF-CARE Condition: Good Instructions (If sedation given, give patient instructions): Upper Respiratory Infection (ED) Additional Instructions: Return to the emergency department for any new or worsening symptoms. Recommend that you continue cycling Tylenol and Motrin at home for symptomatic and fever relief. Complete antibiotics as prescribed by your primary care provider. Continue to use Flonase as well. Increase hydration and use of a humidifier at night. Is patient prescribed a controlled substance at d/c from ED?: No Referrals: Mandeep Chaves MD [Primary Care Provider] - 1-2 days Time of Disposition: 21:01
[2024-01-14] MEDS: IBUPROFEN 800 MG TAB PO STA (19:35)
[2024-01-14] MEDS: SODIUM CHLORIDE 0.9% 1,000 ML IV STA (19:41)
[2024-01-14 22:03] VITALS: BP 120/73; PULSE 118; RESP 20; TEMP 98.9
== END 2024-01-14 22:03 | disposition home or self-care (01) ==
LOC: EC 18:51
CPT/HCPCS: 87636; 96360; 99283

== ENCOUNTER 2024-01-15 07:03 | Emergency (ER) | payer OTHER ==
[2024-01-15] MEDS: SODIUM CHLORIDE 0.9% 1,000 ML IV STA (07:30)
--- NOTE | 2024-01-15 07:33 | ED ---
General Adult HPI - General Chief complaint: Fever Stated complaint: Fever Time Seen by Provider: 01/15/24 07:18 Source: patient, RN notes reviewed, old records reviewed Mode of arrival: ambulatory Limitations: no limitations - History of Present Illness Initial comments: Patient is a 23-year-old male who presents as a reevaluation. Has a past medical history remarkable for GERD, chronic sinusitis. Also history of anxiety. Presents for febrile illness for the last 2 days. Has been evaluated at [facility] as well as here. Chest x-ray done at [place] are unremarkable. Viral swabs done here yesterday unremarkable. Patient is already on Augmentin from his PCP. Presents over concern for continued fevers at home that do respond to Tylenol Motrin. Had a fever of 102 at home this morning that responded to Tylenol as he is currently afebrile. Does appear somewhat anxious about this and presents today for reevaluation. Symptoms include congestion, cough of a unknown colored sputum, intermittent fevers that do respond to the antipyretics at home. Denies nausea, vomiting, diarrhea. Endorses some muscle discomfort in his ribs from coughing. Denies any other acute complaints at this time. Would like to be evaluated as he was told to come back if he feels worse and states that he woke this morning and felt bad when he had the high fever which is why took the Tylenol and came here for evaluation. - Related Data Home Medications Medication Instructions Recorded Confirmed Omeprazole 20 mg PO BID 08/04/22 02/19/23 Cetirizine HCl/Pseudoephedrine 2 tab PO Q12H 02/19/23 02/19/23 [Zyrtec-D ER 5 mg-120 mg Tablet] busPIRone HCl [Buspar] 10 mg PO DAILY@1300 02/19/23 02/19/23 Previous Rx's Medication Instructions Recorded lidocaine HCL [Lidocaine HCl 10 ml PO Q4-6H PRN #100 ml 05/09/23 Viscous] Levofloxacin [Levaquin] 750 mg PO DAILY 5 Days #5 tab 01/15/24 Allergies Allergy/AdvReac Type Severity Reaction Status Date / Time No Known Allergies Allergy Verified 10/16/23 18:37 Review of Systems ROS Statement: Those systems with pertinent positive or pertinent negative responses have been documented in the HPI. Review of Systems: CONST: Remittent fevers EYES: Denies blurry vision ENT: Endorses nasal congestion, cough C/V: Denies Chest pain RESP: Denies shortness of breath GI: Denies abdominal pain : Denies dysuria SKIN: Denies rash. MSK: Denies joint pain. NEURO: Denies headache ROS Other: All systems not noted in ROS Statement are negative. Past Medical History Past Medical History: GERD/Reflux Additional Past Medical History / Comment(s): chronic sinusitis History of Any Multi-Drug Resistant Organisms: None Reported Past Surgical History: No Surgical Hx Reported Additional Past Surgical History / Comment(s): Pyloric stenosis surgically repaired. Past Psychological History: Anxiety, Depression Smoking Status: Former smoker Past Alcohol Use History: None Reported Past Drug Use History: None Reported General Exam - General Exam Comments Initial Comments: General: Appears in no acute distress. HEAD: Normal with no signs of head trauma. EYES: EOMI ENT: No sinus tenderness to palpation. Bilateral tympanic membranes within normal limits. No posterior oropharyngeal edema or erythema. Uvula is midline. RESPIRATORY: Clear breath sounds bilaterally. No wheezes, rales, or rhonchi. No hypoxia. C/V: Tachycardic with regular rhythm. S1 and S2 auscultated, peripheral pulses 2+ and intact throughout ABD: Abd is soft, nontender, nondistended EXT: Normal range of motion, no obvious deformity SKIN: No rashes or lesions observed on exposed skin. NEURO: Alert and oriented x 4. Limitations: no limitations Course Vital Signs 01/15/24 01/15/24 01/15/24 07:03 08:27 08:53 Temperature 99.2 F 98.9 F 99.1 F Pulse Rate 120 H 106 H 108 H Respiratory 20 18 18 Rate Blood Pressure 131/84 121/72 O2 Sat by Pulse 96 97 Oximetry Medical Decision Making - Medical Decision Making Was pt. sent in by a medical professional or institution (, PA, FELT DYEING MACHINE TENDER, urgent care, hospital, or group home...) When possible be specific @ -No Did you speak to anyone other than the patient for history (EMS, parent, family, police, friend...)? What history was obtained from this source @ -No Did you review nursing and triage notes (agree or disagree)? Why? @ -I reviewed and agree with nursing and triage notes Were old charts reviewed (outside hosp., previous admission, EMS record, old EKG, old radiological studies, urgent care reports/EKG's, group home records)? Report findings @ -Chart reviewed from visit from yesterday. Viral swabs are negative. Differential Diagnosis (chest pain, altered mental status, abdominal pain women, abdominal pain men, vaginal bleeding, weakness, fever, dyspnea, syncope, hea dache, dizziness, GI bleed, back pain, seizure, CVA, palpatations, mental health, musculoskeletal)? @ -Pneumonia, COVID, flu, RSV, sinusitis, URI, anxiety. This list is not all inclusive. EKG interpreted by me (3pts min.). @ -As above X-rays interpreted by me (1pt min.). @ -Chest x-ray shows right lower lobe pneumonia. CT interpreted by me (1pt min.). @ -None done U/S interpreted by me (1pt. min.). @ -None done What testing was considered but not performed or refused? (CT, X-rays, U/S, la bs)? Why? @ -None What meds were considered but not given or refused? Why? @ -Considered steroids however patient states this makes his heart rate faster. Did you discuss the management of the patient with other professionals (professionals i.e. , PA, FELT DYEING MACHINE TENDER, lab, RT, psych nurse, social worker health services, hide trimmer, teacher, president and chief commercial officer, piano case maker)? Give summary @ -No Was smoking cessation discussed for >3mins.? @ -No Was critical care preformed (if so, how long)? @ -No Were there social determinants of health that impacted care today? How? (Homelessness, low income, unemployed, alcoholism, drug addiction, transportation, low edu. Level, literacy, decrease access to med. care, snf, rehab)? @ -No Was there de-escalation of care discussed even if they declined (Discuss DNR or withdrawal of care, Hospice)? DNR status @ -No What co-morbidities impacted this encounter? (DM, HTN, Smoking, COPD, CAD, Cancer, CVA, ARF, Chemo, Hep., AIDS, mental health diagnosis, sleep apnea, morbid obesity)? @ -None Was patient admitted / discharged? Hospital course, mention meds given and route, prescriptions, significant lab abnormalities, going to OR and other pertinent info. @ -Based on patient's presentation and physical exam, presents for fevers that respond to antipyretics as well as URI symptoms for 2 days. Has already been placed on Augmentin by his PCP and has had 1 days worth of this medication. Was seen at multiple facilities and presents today for evaluation after he had a fever this morning and felt worse. Vitals remarkable for tachycardia however currently afebrile. Discussed with the patient we will obtain basic labs as well as screening EKG and chest x-ray. Patient was in agreement this plan. Patient is tachycardic but I do strongly suspect this is from a degree of anxi ety as this is the patient's third visit to a physician in the last few days and he has a history of anxiety.Patient given a dose of Ativan for his anxiety. Laboratory studies unremarkable. EKG shows no signs of acute ischemia. Chest x-ray shows right lower lobe pneumonia. Patient's vitals are improved. I discussed results with the patient. I will place the patient on a stronger antibiotic at this time although I doubt he has been on this current antibiotic long enough for it to take effect. He was in agreement this plan. Strict return precautions discussed. Patient given a dose of Levaquin prior to discharge. I will provide the patient with a prescription for Levaquin. I instructed the patient to follow up with their PCP in the next 1-3 days.. I explained that the patient should return to the emergency department if they experience any worsening symptoms. Strict return precautions were discussed with the patient. The patient expressed understanding of these instructions. I answered all questions that the patient had. The patient was discharged home in good condition with their prescriptions and follow up information. Undiagnosed new problem with uncertain prognosis? @ -No Drug Therapy requiring intensive monitoring for toxicity (Heparin, Nitro, Insulin, Cardizem)? @ -No Were any procedures done? @ -No Diagnosis/symptom? @ -Pneumonia Acute, or Chronic, or Acute on Chronic? @ -Acute Uncomplicated (without systemic symptoms) or Complicated (systemic symptoms)? @ -Complicated Side effects of treatment? @ -None Exacerbation, Progression, or Severe Exacerbation] @ -No Poses a threat to life or bodily function? @ -Unlikely - Lab Data Result diagrams: 01/15/24 07:28 01/15/24 07:28 Lab Results 01/15/24 01/15/24 Range/Units 07:28 07:28 WBC 9.9 (3.8-10.6) k/uL RBC 5.06 (4.30-5.90) m/uL Hgb 14.7 (13.0-17.5) gm/dL Hct 43.4 (39.0-53.0) % MCV 85.8 (80.0-100.0) fL MCH 29.1 (25.0-35.0) pg MCHC 33.9 (31.0-37.0) g/dL RDW 13.4 (11.5-15.5) % Plt Count 213 (150-450) k/uL MPV 7.1 Neutrophils % 81 % Lymphocytes % 8 % Monocytes % 7 % Eosinophils % 2 % Basophils % 0 % Neutrophils # 8.0 H (1.3-7.7) k/uL Lymphocytes # 0.8 L (1.0-4.8) k/uL Monocytes # 0.7 (0-1.0) k/uL Eosinophils # 0.2 (0-0.7) k/uL Basophils # 0.0 (0-0.2) k/uL Sodium 137 (137-145) mmol/L Potassium 4.3 (3.5-5.1) mmol/L Chloride 106 (98-107) mmol/L Carbon Dioxide 21 L (22-30) mmol/L Anion Gap 10 mmol/L BUN 11 (9-20) mg/dL Creatinine 0.98 (0.66-1.25) mg/dL Est GFR (CKD-EPI)AfAm >90 (>60 ml/min/1.73 sqM) Est GFR (CKD-EPI)NonAf >90 (>60 ml/min/1.73 sqM) Glucose 129 H (74-99) mg/dL Calcium 9.4 (8.4-10.2) mg/dL - EKG Data -: EKG Interpreted by Me EKG Comments: 12-lead Electrocardiogram Interpretation Note EKG was reviewed and interpreted by myself. 12-lead ECG performed at 0728 is interpreted by me as revealing sinus tachycardia at a rate of 113 beats per minute. [place] is normal. NE interval is 147 ms, QRS duration is 91 ms, QTc is 368 ms.. There were no ST or T wave abnormalities to suggest myocardial ischemia or injury. R wave progression across the precordium was satisfactory. By my interpretation this EKG is non-diagnostic for acute ischemia. Disposition Clinical Impression: Pneumonia Disposition: HOME SELF-CARE Condition: Good Instructions (If sedation given, give patient instructions): Community Acquired Pneumonia (ED) Prescriptions: Levofloxacin [Levaquin] 750 mg PO DAILY 5 Days #5 tab Is patient prescribed a controlled substance at d/c from ED?: No Referrals: Mandeep Chaves MD [Primary Care Provider] - 1-2 days Time of Disposition: 09:03
[2024-01-15 07:53] LABS: Basophils % (A) 0 %; Eosinophils # (A) 0.2 k/uL (0-0.7); Eosinophils % (A) 2 %; HCT 43.4 % (39.0-53.0); HGB 14.7 gm/dL (13.0-17.5); Lymphocytes # (A) 0.8 k/uL (1.0-4.8); Lymphocytes % (A) 8 %; MCH 29.1 pg (25.0-35.0); MCHC 33.9 g/dL (31.0-37.0); MCV 85.8 fL (80.0-100.0); Mean Platelet Volume 7.1; Monocytes # (A) 0.7 k/uL (0-1.0); Monocytes % (A) 7 %; Neutrophils % (A) 81 %; Platelet Count 213 k/uL (150-450); RBC 5.06 m/uL (4.30-5.90); RDW 13.4 % (11.5-15.5); WBC 9.9 k/uL (3.8-10.6)
--- NOTE | 2024-01-15 07:57 | XR ---
EXAMINATION TYPE: XR chest 1V portable DATE OF EXAM: 01/15/2024 COMPARISON: 02/19/2023 HISTORY: Cough TECHNIQUE: Single frontal view of the chest is obtained. FINDINGS: There is a focal partial airspace consolidation in the right lower lobe likely indicating a pneumonic infiltrate. Short-term follow-up to resolution is recommended. Left lung is clear. The heart and pulmonary vascularity are within normal limits. The osseous structures are intact. Ther e is no pneumothorax IMPRESSION: Right lower lobe opacification likely an acute pneumonia. Short-term follow-up to resolu tion is recommended. [facility], , 01/15/2024 7:55 AM
[2024-01-15 07:58] LABS: African American GFR (CKD) >90 (>60 ml/min/1.73 sqM); Anion Gap 10 mmol/L; Blood Urea Nitrogen 11 mg/dL (9-20); Calcium 9.4 mg/dL (8.4-10.2); Carbon Dioxide 21 mmol/L (22-30); Chloride 106 mmol/L (98-107); Glucose 129 mg/dL (74-99); Non-African American GFR(CKD) >90 (>60 ml/min/1.73 sqM); Potassium 4.3 mmol/L (3.5-5.1); Sodium 137 mmol/L (137-145)
[2024-01-15] MEDS: LORazepam 1 MG TAB PO STA (07:59)
[2024-01-15] MEDS: KETOROLAC 15 MG/ML 1 ML VIAL IVP STA (08:08)
[2024-01-15 08:29] VITALS: BP 121/72; RESP 18
[2024-01-15 08:54] VITALS: PULSE 108; TEMP 99.1
[2024-01-15] MEDS: LEVOFLOXACIN 750 MG TAB PO STA (09:07)
== END 2024-01-15 09:22 | disposition home or self-care (01) ==
LOC: EC 07:03
CPT/HCPCS: 36415; 71045; 80048; 85025; 93005; 96361; 96374; 99283

== ENCOUNTER 2024-01-16 00:02 | Emergency (ER) | payer OTHER ==
[2024-01-16 00:12] VITALS: BP 130/81; PULSE 126; RESP 17; TEMP 100.9
--- NOTE | 2024-01-16 01:14 | ED ---
Fever HPI - General Chief Complaint: Fever Stated Complaint: Fever Time Seen by Provider: 01/16/24 00:20 Source: patient, RN notes reviewed Mode of arrival: ambulatory Limitations: no limitations - History of Present Illness Initial Comments: This is a 23-year-old male who presents emergency department for a recheck. Patient has been evaluated in the emergency department multiple times and at outside facilities over the past week for similar symptoms including fevers, cough, and upper respiratory infection symptoms. Patient was evaluated at this emergency department earlier today and was discharged home with a different antibiotic for pneumonia. Patient states that he has been taking Tylenol and Motrin as scheduled however is still experiencing fevers at home. He denies shortness of breath, difficulty breathing, abdominal pain, nausea, vomiting. States that he was provided with dose of Levaquin the emergency department and is picked up prescription from the pharmacy and is instructed take this 1 time per day. - Related Data Home Medications Medication Instructions Recorded Confirmed Omeprazole 20 mg PO BID 08/04/22 02/19/23 Cetirizine HCl/Pseudoephedrine 2 tab PO Q12H 02/19/23 02/19/23 [Zyrtec-D ER 5 mg-120 mg Tablet] busPIRone HCl [Buspar] 10 mg PO DAILY@1300 02/19/23 02/19/23 Previous Rx's Medication Instructions Recorded lidocaine HCL [Lidocaine HCl 10 ml PO Q4-6H PRN #100 ml 05/09/23 Viscous] Levofloxacin [Levaquin] 750 mg PO DAILY 5 Days #5 tab 01/15/24 Allergies Allergy/AdvReac Type Severity Reaction Status Date / Time No Known Allergies Allergy Verified 01/16/24 00:12 Review of Systems ROS Statement: Those systems with pertinent positive or pertinent negative responses have been documented in the HPI. ROS Other: All systems not noted in ROS Statement are negative. Past Medical History Past Medical History: GERD/Reflux Additional Past Medical History / Comment(s): chronic sinusitis History of Any Multi-Drug Resistant Organisms: None Reported Past Surgical History: No Surgical Hx Reported Additional Past Surgical History / Comment(s): Pyloric stenosis surgically repaired. Past Psychological History: Anxiety, Depression Smoking Status: Former smoker Past Alcohol Use History: None Reported Past Drug Use History: None Reported General Exam Limitations: no limitations General appearance: alert, in no apparent distress Head exam: Present: atraumatic, normocephalic, normal inspection ENT exam: Present: normal exam, mucous membranes moist Neck exam: Present: normal inspection. Absent: tenderness, meningismus, lymphadenopathy Respiratory exam: Present: normal lung sounds bilaterally. Absent: respiratory distress, wheezes, rales, rhonchi, stridor Cardiovascular Exam: Present: regular rate, normal rhythm, normal heart sounds. Absent: systolic murmur, diastolic murmur, rubs, gallop, clicks GI/Abdominal exam: Present: soft, normal bowel sounds. Absent: distended, tenderness, guarding, rebound, rigid Extremities exam: Present: normal inspection, full ROM, normal capillary refill. Absent: tenderness, pedal edema, joint swelling, calf tenderness Back exam: Present: normal inspection Neurological exam: Present: alert, oriented X3, CN II-XII intact Skin exam: Present: warm, dry, intact, normal color. Absent: rash Course Vital Signs 01/16/24 00:10 Temperature 100.9 F H Pulse Rate 126 H Respiratory 17 Rate Blood Pressure 130/81 O2 Sat by Pulse 96 Oximetry Medical Decision Making - Medical Decision Making Was pt. sent in by a medical professional or institution (Dr. PA, LITHOGRAPHER HELPER, urgent care, hospital, or [place] [facility] facility...) When possible be specific @ -No Did you speak to anyone other than the patient for history (EMS, parent, family, police, friend...)? What history was obtained from this source @ -No Did you review nursing and triage notes (agree or disagree)? Why? @ -I reviewed and agree with nursing and triage notes Were old charts reviewed (outside hosp., previous admission, EMS record, old EKG, old radiological studies, urgent care reports/EKG's, [place] [facility] facility records)? Report findings @ -I reviewed the patient's emergency department visit note from 01/15/2024 where he was discharged home with Levaquin and instructed to continue supportive treatment at home he was diagnosed with pneumonia. Differential Diagnosis (chest pain, altered mental status, abdominal pain women, abdominal pain men, vaginal bleeding, weakness, fever, dyspnea, syncope, headache, dizziness, GI bleed, back pain, seizure, CVA, palpatations, mental health, musculoskeletal)? @ -COVID 19, RSV, influenza, pneumonia, acute bronchitis, URI, this list is not all inclusive EKG interpreted by me (3pts min.). @ -None X-rays interpreted by me (1pt min.). @ -None done CT interpreted by me (1pt min.). @ -None done U/S interpreted by me (1pt. min.). @ -None done What testing was considered but not performed or refused? (CT, X-rays, U/S, labs)? Why? @ -None What meds were considered but not given or refused? Why? @ -None Did you discuss the management of the patient with other professionals (professionals i.e. DrYesica, PA, LITHOGRAPHER HELPER, lab, RT, psych nurse, social media specialist, box spinner, teacher, chief safety officer, upper caser)? Give summary @ -No Was smoking cessation discussed for >3mins.? @ -No Was critical care preformed (if so, how long)? @ -No Were there social determinants of health that impacted care today? How? (Homelessness, low income, unemployed, alcoholism, drug addiction, transportation, low edu. Level, literacy, decrease access to med. care, prison, rehab)? @ -No Was there de-escalation of care discussed even if they declined (Discuss DNR or withdrawal of care, Hospice)? DNR status @ -No What co-morbidities impacted this encounter? (DM, HTN, Smoking, COPD, CAD, Cancer, CVA, ARF, Chemo, Hep., AIDS, mental health diagnosis, sleep apnea, morbid obesity)? @ -None Was patient admitted / discharged? Hospital course, mention meds given and route , prescriptions, significant lab abnormalities, going to OR and other pertinent info. @ -Discharged. 23-year-old male with fever. Patient's vitals reveal mild fever of 100.9 and tachycardia which is likely secondary to the patient's anxiety as he has been present emergency department multiple times over the past few short days for the similar symptoms. Lengthy discussion with patient at bedside that infection such the patient has of pneumonia it is common to experience fevers at home and recommend that he continue Tylenol and Motrin. Additionally recommend that he take full dosage of anti-inflammatories such as ibuprofen 800 mg every 6 hours and acetaminophen 1000 mg every 6 hours. Additionally patient is requesting medication to help him sleep as he states that he has become of them overnight and coughing. Recommend that he trial NyQuil at home and he states that he has not attempted this yet. Patient states that he is feeling comfortable for discharge and will continue antibiotics as prescribed and supportive treatment. All questions answered at bedside and strict return parameters as the patient is verbalized understanding. Discussed with Dr. Welch Undiagnosed new problem with uncertain prognosis? @ -No Drug Therapy requiring intensive monitoring for toxicity (Heparin, Nitro, Insulin, Cardizem)? @ -No Were any procedures done? @ -No Diagnosis/symptom? @ -Fever, pneumonia Acute, or Chronic, or Acute on Chronic? @ -acute Uncomplicated (without systemic symptoms) or Complicated (systemic symptoms)? @ -uncomplicated Side effects of treatment? @ -No Exacerbation, Progression, or Severe Exacerbation? @ -No Poses a threat to life or bodily function? How? (Chest pain, [place], NH, pneumonia, PE, COPD, DKA, ARF, appy, cholecystitis, CVA, Diverticulitis, Homicidal, Suici jacinto, threat to staff... and all critical care pts) @ -No Disposition Clinical Impression: Fever, Pneumonia Disposition: HOME SELF-CARE Condition: Good Instructions (If sedation given, give patient instructions): Fever in Adults (ED), Community Acquired Pneumonia (ED) Additional Instructions: Return to the emergency department for any new or worsening symptoms. Complete full course of Levaquin as prescribed from previous emergency department visit. You can take up to 1000 mg of acetaminophen by mouth every 6 hours and up to 800 mg of ibuprofen every 6 hours. Recommend that you cycled the 2 of them. Also, recommend that you trial using NyQuil at night to aid in insomnia. Take this medication at the time you would normally take an additional dose of Tylenol. Be mindful of the dosing of NyQuil active ingredients such as Tylenol and ibuprofen. Is patient prescribed a controlled substance at d/c from ED?: No Referrals: Mandeep Chaves MD [Primary Care Provider] - 1-2 days Time of Disposition: 01:11
== END 2024-01-16 01:22 | disposition home or self-care (01) ==
LOC: EC 00:02
CPT/HCPCS: 99283

== ENCOUNTER → 2024-01-24 | Outpatient (CLI) | payer OTHER ==
[2024-01-24 20:58] LABS: % Iron Saturation 14.07 (15.00-50.00); Chol/HDL Ratio 4.75 Ratio; Iron 55 UG/DL (65-175); LDL Cholesterol,Calculated 86.6 mg/dL (0.0-131.0); Total Iron Binding Capacity 391 UG/DL (228-460)
[2024-01-24 20:59] LABS: ALT 29 U/L (10-49); AST 20 U/L (14-35); Albumin 4.5 g/dL (3.8-4.9); Albumin/Globulin Ratio 1.55 Ratio (1.60-3.17); Alkaline Phosphatase 78 U/L (41-126); BUN/Creat Ratio 12.55 Ratio (12.00-20.00); Blood Urea Nitrogen 13.8 mg/dL (9.0-27.0); Calcium 9.8 mg/dL (8.7-10.3); Carbon Dioxide 24.2 mmol/L (21.6-31.8); Chloride 102 mmol/L (96-109); Globulin 2.9 g/dL (1.6-3.3); Glucose 96 mg/dL (70-110); Potassium 4.4 mmol/L (3.5-5.5); Sodium 138 mmol/L (135-145); Total Bilirubin 0.5 mg/dL (0.3-1.2); Total Protein 7.4 g/dL (6.2-8.2)
[2024-01-24 23:25] LABS: Reticulocyte % 1.75 % (0.10-1.80)
== END | disposition home or self-care (01) ==
LOC: LABWHC1 13:25
PROVIDERS: ATTEND Family Medicine
DX: D50.9 Iron deficiency anemia, unspecified (principal); R79.9 Abnormal finding of blood chemistry, unspecified
CPT/HCPCS: 36415; 80053; 80061; 82728; 83036; 83540; 83550; 84443; 85045

== ENCOUNTER → 2024-02-25 | Outpatient (CLI) | payer OTHER | END | disposition home or self-care (01) | LOC: LABWHC1 13:53 | PROVIDERS: ATTEND Family Medicine | DX: E55.9 Vitamin D deficiency, unspecified (principal); E61.1 Iron deficiency | CPT/HCPCS: 36415; 82306; 82607; 82746; 84207; 84630 ==